=== PATIENT | male | born 1970 | race African-American/Black ===

== ENCOUNTER 2017-08-18 09:30 | Outpatient (RCR) | payer MEDICAID, SELFPAY ==
--- NOTE | 2017-07-07 11:56 | HP.PTEVAL_ITS ---
Patient's Visit Information JOSE M MCGEE Sr. is a 47 year old M referred to Physical Therapy by MIS [email or web address].NISA with a diagnosis of Right THR. Date of Evaluation: 07/07/17 Physical Therapist: Erin Chapin - Visit Plan Frequency: 2x /Week Duration: 6 Weeks Plan: Spoke to assist- pt is WBAT - Subjective Subjective: Right side TKR about a month ago. At the hospital for a few days then went home. Apartment- has to do steps (32)- when im up I stay up. Once he gets up there he is on one floor. Reports that he is on a walker and was told to up as least amount of weight as possible. Does have someone to do grocery shopping- has lots of help as needed. He is monkey crawling up the stairs. Does not have exercises to do at home. Does not drive- will bring van. Did therapy one time at [facility] but had a hard time getting there. Patient reports lots of pain in the right hip- mostly all the time. Worst: 8.5/ 10 Agg: movement, shifting weight, night time Best: 6/10 Eases: meds then goes to sleep. Describes pain as dull/achy and sharp/shooting. hurts a lot . Pain is located along the right outside of the hip and into the groin. Has an anterior incision. Sleep: disturbed. Has blood clots in the right leg- so he has to wear PEDRITO hose- not from this surgery. Has a filter. Is pretty much in the bed all the time. Sometimes has N/T in the toes. Goes back to see Jul 17-. PMHx/Meds: none since surgery - Objective Posture: FH, RS, increased kyphosis. Gait: antalgic- uses a platform walker- decreased stance on the right LE. SLS: unable but will WS. HR/TR: able. ROM: WFL with pain. Strength: ankle: 4/5, Knee: 4-/5, Hip: 3/5 throughout Core: poor. Palpation: tender along greater troch - Goals Goal 1:: Patient will be I with HEP and progression Goal Time Frame: 4-6 Weeks Goal 2:: Patient will demo normalized gait pattern >300 feet with LRD Goal Time Frame: 4-6 Weeks Goal 3:: Patient will asc/desc 8 stairs recip with 1 HR Goal Time Frame: 4-6 Weeks Goal 4:: Patient will demo 4+/5 strength in LE Goal Time Frame: 4-6 Weeks - Rehabilitation Potential Physical Therapy Diagnosis: Patient presents with hypomobility- he has decreased strength and muscular endurance leading to abnormal gait and decreased ability to perform ADL's. Rehabilitation Potential: Fair - Anticipated Interventions Patient/Client Instruction: Educate patient on: Benefits of Fitness Program For the Purpose of:: To improve ability to perform ADL's Therapeutic Exercise to Include: Strength training, Endurance training, Agility training, Body mechanics, Postural training, Flexibilty training, Gait and locomotor training, Passive ROM, Active ROM, Dynamic Lumbar Stabilization For the Purpose of:: To improve muscle performance and motor function TENS: Yes Cryotherapy (ice pack, ice massage): Yes Thermo therapy (hot pack): Yes Ultrasound (thermal/non thermal): No Thank you for the opportunity to evaluate your patient. For Medicare and Medicare HMO plans, please review the plan of care and approve it. It will need to be FAXED BACK to us at [phone] for Medicare purposes. Please let me know if there are questions or concerns regarding this plan of care. Physician Signature: Date:
--- NOTE | 2017-10-06 14:26 | HP.PTDCNRP_ITS ---
HP - Discharge Summary (1) - Patient Information JOSE M MCGEE was seen in my office for initial evaluation on 07/07/17. The following Plan of Care was established for this patient: Initial Frequency: 2x /Week Initial Duration: 6 Weeks - Anticipated Interventions Patient/Client Instruction: Educate patient on: Benefits of Fitness Program For the Purpose of:: To improve ability to perform ADL's Therapeutic Exercise to Include: Strength training, Endurance training, Agility training, Body mechanics, Postural training, Flexibilty training, Gait and locomotor training, Passive ROM, Active ROM, Dynamic Lumbar Stabilization For the Purpose of:: To improve muscle performance and motor function TENS: Yes Cryotherapy (ice pack, ice massage): Yes Thermo therapy (hot pack): Yes Ultrasound (thermal/non thermal): No This patient was last seen in our office . Pertinent comments regarding their Physical therapy will appear below: Patient has not attended physical therapy in over 4 weeks- appropriate to be d/ c at this time. At this point I will be discontinuing this patient from physical therapy. I would be happy to see this patient again in the future if found appropriate by the physician. Thank you! Erin Chapin
== END 2017-08-18 19:00 | disposition home or self-care (01) ==
LOC: PT 09:30
PROVIDERS: Visit Provider Physician Assistant Surgical
DX: M87.051 Idiopathic aseptic necrosis of right femur (principal)
CPT/HCPCS: 97110; 97161

== ENCOUNTER 2017-12-14 11:05 | Emergency (ER) | payer MEDICAID, SELFPAY ==
[2017-12-14 11:05] VITALS: BP 108/71; PULSE 82; RESP 20; TEMP 36.6; O2SAT 95; BMI 21.4
--- NOTE | 2017-12-14 11:14 | RAD_ITS ---
STUDY: X-RAY - PELVIS AND RIGHT HIP REASON FOR EXAM: Male, 47 years old. Right-sided hip pain after fall. TECHNIQUE: Radiological exam, hip, unilateral, with pelvis when performed; 2 or 3 views. COMPARISON: Radiographs of the pelvis dated June 04, 2017. FINDINGS: There is a non-specific bowel gas pattern. There are multiple calcified phleboliths. Sacrum and iliac wings are obscured by bowel gas and stool. Normal bilateral superior and inferior pubic rami. There are degenerative changes of the pubic symphysis with articular narrowing and sclerosis. Normal bilateral ischial tuberosities. Patient has had a total right hip arthroplasty. There is a bony fragment near the greater trochanter that may be the result of previous surgery and/or trauma. This is not visible on the previous radiograph. There are degenerative changes of the left hip. There is abnormal heterogeneous attenuation of the left femoral head that suggest sequela of avascular necrosis. There is a small left acetabular spur. RAD/Hip 2-3 Views with Pelvis IMPRESSION: 1. New corticated bone fragment near the right greater trochanter possibly related to fracture of uncertain acuity. 2. Total right hip arthroplasty. 3. 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 Electronically Signed: Radha Bah MD at 11:57 EDT , Service support ,
--- NOTE | 2017-12-14 11:14 | RAD_ITS ---
STUDY: X-RAY - RIGHT KNEE REASON FOR EXAM: Male, 47 years old. Right-sided knee pain after fall. TECHNIQUE: 3 view(s) of the knee. COMPARISON: Radiographs of the right knee dated July 29, 2015. FINDINGS: Normal visualized distal femur. Normal visualized proximal tibia and fibula. There is a well-corticated bony fragment anterior to the proximal tibia, unchanged since the previous study. Normal proximal tibiofibular articulation. There is no demonstrated fracture. Normal medial femorotibial compartment. Normal lateral femorotibial compartment. There is mild degenerative arthrosis of the patellofemoral articulation. There is no demonstrated joint effusion. The soft tissue structures are unremarkable. RAD/Knee 3 Views IMPRESSION: 1. Mild degenerative arthropathy similar to previous radiograph. 2. No radiographic evidence for acute fracture. If there is still clinical concern for acute fracture, follow-up radiographs in 7-10 days maybe helpful in evaluating a healing radiographically occult fracture. Electronically Signed: Radha Bah MD at 12:02 EDT , Service support ,
--- NOTE | 2017-12-14 11:17 | ED.DCSUM_ITS ---
- ER Visit Summary Date of Service: 12/14/17 Chief Complaint: Right hip and leg pain History of Present Illness: The patient is a 47 M who presents after a fall. He fell down 6 steps today. It was a mechanical fall. He has pain in the right hip that radiates down to the right lower leg. It is worse when he ambulates. He does have a history of DVT. He is on Pradaxa. Denies hitting her head. No LOC. He also has an IVC filter. He took Tylenol home without any relief Physical Examination: Vital signs reviewed. Right leg exam reveals tenderness diffusely over the right hip near the greater trochanter. He also has diffuse right knee pain. He has painful range of motion in any direction. He has 2+ distal pulses. His right leg is warm. It is slightly swollen compared to the left. His compartments are soft. Test Results: X-ray of the right hip reveals her right hip it has been replaced. There is a fracture fragment at the greater trochanter. The acuity of this is unknown. X-rays of the knee reveal arthritic changes Emergency Department Course and Treatment: Patient was given naproxen here. He did not tell me that he had his hip replaced about 3-[address] Wang. There is a fracture fragment but it does not look acute. His knee x- ray reveals arthritic changes only. Patient will continue his home medications and will use ice on all of these areas. He will continue his medications at home for DVT. I do not feel that this is an acute DVT. He is already on Pradaxa and has an IVC filter. He will follow-up with his primary care physician Treatment Plan: [] Disposition: Discharge Impression: Hip and knee pain This note was generated with [employer] dictation software. It may contain incorrect words, spelling, and punctuation that were not noted in review of the chart prior to signing ED Disposition - Plan for ED Patient: Chief Complaint: Fall Referrals: Care Physician,No Primary [Primary Care Provider] -
[2017-12-14] MEDS: Naproxen 500 MG Tablet PO (12:00)
--- NOTE | 2017-12-14 12:20 | ED.DEP ---
ED Disposition - Plan for ED Patient: Disposition: Home or Assisted Living Chief Complaint: Fall Instructions: ED Mechanical Fall Referrals: Care Physician,No Primary [Primary Care Provider] -
[2017-12-14 12:27] VITALS: BP 135/72; PULSE 94; RESP 22; O2SAT 98
--- NOTE | 2017-12-14 12:28 | ED.RN ---
THIS NURSE REVIEWED D/C INSTRUCTIONS WITH PT. PT VERBALIZED UNDERSTANDING OF INSTRUCTIONS. PT DENIES FURTHER NEEDS OR QUESTIONS AT THIS TIME. PT AMBULATES FROM ROOM ON OWN WITHOUT ASSISTANCE FROM STAFF
== END 2017-12-14 12:29 | disposition home or self-care (01) ==
PROVIDERS: Emergency Provider Emergency Medicine
DX: M25.551 Pain in right hip (principal); M25.561 Pain in right knee; W10.9XXA Fall (on) (from) unspecified stairs and steps, initial encounter; Y93.9 Activity, unspecified; Y92.9 Unspecified place or not applicable; Y99.9 Unspecified external cause status; Z79.02 Long term (current) use of antithrombotics/antiplatelets; Z86.718 Personal history of other venous thrombosis and embolism; Z96.641 Presence of right artificial hip joint
CPT/HCPCS: 73502; 73562; 99283

== ENCOUNTER → 2017-12-23 12:53 | Outpatient (CLI) | payer MEDICAID, SELFPAY ==
[2017-12-23 14:19] LABS: Amphetamine Urine VISTA NEGATIVE (<1000 ng/mL); Barbiturate Urine VISTA NEGATIVE (< 200 ng/mL); Benzodiazepine Urine VISTA NEGATIVE (< 200 ng/mL); Cocaine Urine VISTA NEGATIVE (< 300 ng/mL); Ecstacy Urine VISTA NEGATIVE (< 500 ng/mL); Methadone Urine VISTA NEGATIVE (< 300 ng/mL); PCP Urine VISTA NEGATIVE (< 25 ng/mL); THC Urine VISTA NEGATIVE (< 50 ng/mL); Vista UDS pH Range 6
== END ==
PROVIDERS: Visit Provider Nurse Practitioner Family
DX: G89.29 Other chronic pain (principal); Z79.899 Other long term (current) drug therapy
CPT/HCPCS: 80307

== ENCOUNTER 2018-01-13 09:25 | Emergency (ER) | payer MEDICAID, SELFPAY ==
[2018-01-13 09:26] VITALS: BP 112/87; PULSE 109; RESP 18; TEMP 37.1; O2SAT 98; BMI 22.1
[2018-01-13 10:22] LABS: Bacteria 0 SEEN /hpf (None Seen); Mucous, Urine 0 SEEN /hpf (<or=2+)
[2018-01-13 10:24] LABS: Color, Urine Yellow (Yellow); Glucose, Dipstick Normal (Normal); Ketone-Dipstick Negative (Negative); Leukocyte Esterase-Dipstick 500 /ul (Negative); Nitrite-Dipstick Negative (Negative); Occult Blood-Urine 10 /ul (Negative); Protein-Dipstick 15 mg/dl (Negative); Specific Gravity, Urine 1.015 (1.002-1.030); Urine Bilirubin Dipstick Negative (Negative); Urine Clarity Sl. Cloudy (Clear); Urine Urobilinogen Normal (Normal)
[2018-01-13 10:32] LABS: Red Blood Cells-Urine 0-5 SEEN /hpf (0-5); Squamous Epithelial Cells - UA 0-5 SEEN /hpf (0-5); White Blood Cells 25-50 SEEN /hpf (0-5)
--- NOTE | 2018-01-13 11:25 | ED.DCSUM_ITS ---
- ER Visit Summary Date of Service: 01/13/18 Chief Complaint: Hematuria History of Present Illness: The patient is a 47 M who presents with painless hematuria that started this morning. He is on Eliquis, however he has been on blood thinners for quite some time although he got switched to Eliquis a few weeks ago. He has no abdominal pain. No flank pain. No testicular pain. No pain with bowel movement. No fever or chills. Physical Examination: Otherwise unremarkable examination, soft abdomen nontender, no CVA tenderness normal external genitalia. Emergency Department Course and Treatment: Patient presents with painless hematuria, his urinalysis does show blood, his urine is slightly cloudy but I do not see any gross blood there for I am not worried about obstruction. He has been on blood thinners for quite some time and has not had this problem thus he needs to follow-up with urology for cystoscopy. Because of PEs he is told to continue his Eliquis , if he gets gross hematuria he needs to return. Disposition: Discharged in stable condition Impression: Painless hematuria This note was generated with [employer] dictation software. It may contain incorrect words, spelling, and punctuation that were not noted in review of the chart prior to signing ED Disposition - Plan for ED Patient: Disposition: Home or Assisted Living Chief Complaint: Complaint Instructions: ED Hematuria Referrals: Emory Mccauley MD [STAFF PHYSICIAN] - 3-5 Days
[2018-01-13 11:39] VITALS: BP 124/77; PULSE 83; RESP 16; O2SAT 100
== END 2018-01-13 11:39 | disposition home or self-care (01) ==
PROVIDERS: Emergency Provider Emergency Medicine
DX: R31.9 Hematuria, unspecified (principal); Z79.01 Long term (current) use of anticoagulants; Z79.899 Other long term (current) drug therapy; Z86.711 Personal history of pulmonary embolism; Z86.718 Personal history of other venous thrombosis and embolism
CPT/HCPCS: 81001; 99282

== ENCOUNTER 2019-02-24 18:47 | Emergency (ER) | payer MEDICAID, SELFPAY ==
[2019-02-24 18:48] VITALS: BP 113/84; PULSE 78; RESP 16; TEMP 36.6; O2SAT 96; BMI 23.0
[2019-02-24] MEDS: Morphine 4 MG/ML Syringe SC (19:16)
--- NOTE | 2019-02-24 19:30 | RAD_ITS ---
STUDY: X-RAY - PELVIS AND RIGHT HIP REASON FOR EXAM: Male, 48 years old. Posttraumatic pain TECHNIQUE: 4 views of the pelvis and hip. COMPARISON: January 13, 2018 FINDINGS: There is a non-specific bowel gas pattern. Normal visualized soft tissue structures. Normal bilateral iliac wings, sacroiliac joints and visualized sacrum. Normal bilateral superior and inferior pubic rami. Normal pubic symphysis. Normal bilateral ischial tuberosities. There are degenerative changes of left hip Right hip prosthesis is noted in anatomic alignment and position. No change since prior exam RAD/HIP, UNI W/ Pelvis 2-3 Views IMPRESSION: Stable appearance to right hip prosthesis. No evidence for acute fracture of the right hip or pelvis. Electronically Signed: De Segura MD at 19:44 EDT , Service support ,
[2019-02-24 19:39] LABS: International Normalized Ratio 0.8; Prothrombin Time (Protime)PT. 11.3 SECONDS (11.7-14.9)
[2019-02-24 19:48] LABS: CPK Total, Creatine Kinase 103 U/L (39-308)
--- NOTE | 2019-02-24 20:19 | ED.DCSUM_ITS ---
History of Present Illness Chief Complaint: Lower Extremity Injury Narrative: Patient presenting secondary to a fall with leg pain. Patient reports that he suffered a mechanical fall down a couple of stairs just prior to arrival. Patient states that he had a right hip replacement performed somewhat recently. Patient states that after the fall he has a hematoma of his medial thigh. He is concerned because he is on anticoagulation secondary to a DVT in that right leg. He denies any numbness or weakness associated with this. Pain is moderate worse with any sort of movement or palpation. Patient denies that he had any sort of head injury in this fall. Denies any numbness or weakness or visual changes. Past Medical History - Allergies and Home Meds Allergies/Adverse Reactions: Allergies Penicillins Allergy (Verified 02/24/19 19:08) Swelling venom-honey bee [bee venom (honey bee)] Allergy (Verified 02/24/19 19:08) Anaphylaxis Past Medical History: - - DVT Surgical History: total hip arthroplasty, tonsillectomy, - - left wrist surgery, right IVC filter Smoking Status: Current every day smoker Review of Systems All systems negative except as indicated General: Denies: Fever Cardiovascular: Denies: Chest pain Respiratory: Denies: Dyspnea Musculoskeletal: Reports: - - Right leg pain with hematoma Physical Exam Vital Signs/Narrative: Vital Signs Temp Pulse Resp BP Pulse Ox 02/24/19 18:48 97.8 F 78 16 113/84 H 96 - Extremity Exam Right Femur: - - Examination of the patient's right lower extremity shows venous stasis changes of the entirety of the right leg which the patient states are unchanged. Patient has a hematoma over the proximal medial thigh which is tender to palpation. Patient's compartments of the thigh and calf are tender, but are soft throughout. Patient has decreased pulses DP and PT pulses in the right leg when compared to the left leg, but these are easily dopplerable, and there is no evidence of coolness of the skin when compared to the contralateral leg. General: Well nourished, Well developed Head: Normocephalic, Atraumatic Eyes: Perrl, EOMI ENT: No Trauma, Moist Mucous Membranes Neck: Nontender, Full ROM Cardiovascular: Regular rate, Regular rhythm, No murmurs Respiratory: No distress, CTA bilaterally, Chest nontender Abdomen: Soft, Nontender, Nondistended, Normal bowel sounds Neurological: Alert, Oriented x3, Cranial nerves II-XII grossly intact, Normal Strength, Normal Sensation Psychological: Normal affect Diagnostic/Tx/Re-eval - Medical Decision Making Patient presented secondary to leg pain. Patient initially told me he was on Coumadin, but then it became apparent that he is on Eliquis. An INR was found to be normal not surprisingly. Patient CK was not found to be elevated. He was treated in the emergency department with analgesics and elevation. A x-ray was obtained which was negative by my personal review as well as radiology and a 3 view hip and pelvis. Patient has a localized hematoma over his medial thigh no evidence of other traumatic injuries. He has no signs or symptoms of persistent compartment bleeding or compartment syndrome. At this point I do not believe that the patient requires admission. I did give him strict return instructions which she voiced understanding and his own words. Patient was discharged with a short course of [place] for pain control. ED Disposition - Plan for ED Patient: Disposition: Home or Assisted Living Diagnosis: Hematoma of right thigh Instructions: Hematoma Prescriptions: Hydrocodone Bitart/Apap 5-325 [[place] 5MG-325MG] 1 tab PO Q8H PRN PRN 3 Days #9 tab PRN Reason: Pain Prescription Printed Additional Instructions: Your PCP as needed
[2019-02-24 20:28] VITALS: BP 116/75; PULSE 63; RESP 17; O2SAT 100
== END 2019-02-24 20:30 | disposition home or self-care (01) ==
PROVIDERS: Emergency Provider Emergency Medicine
DX: S70.11XA Contusion of right thigh, initial encounter (principal); W10.9XXA Fall (on) (from) unspecified stairs and steps, initial encounter; Y93.9 Activity, unspecified; Y92.9 Unspecified place or not applicable; Y99.9 Unspecified external cause status; F17.200 Nicotine dependence, unspecified, uncomplicated; Z79.01 Long term (current) use of anticoagulants; Z79.899 Other long term (current) drug therapy; Z88.0 Allergy status to penicillin; Z86.718 Personal history of other venous thrombosis and embolism; Z96.641 Presence of right artificial hip joint
CPT/HCPCS: 36415; 73502; 82550; 85610; 96372; 99282

== ENCOUNTER 2019-04-09 08:53 | Emergency (ER) | payer MEDICAID, SELFPAY ==
[2019-04-09 08:54] VITALS: BP 119/66; PULSE 79; RESP 18; TEMP 36.6; O2SAT 99; BMI 23.0
--- NOTE | 2019-04-09 09:07 | CT_ITS ---
STUDY: CT BRAIN WITHOUT CONTRAST REASON FOR EXAM: Male, 48 years old. Fall, hit head, headache RADIATION DOSAGE (If Supplied By Facility): CTDIvol = ( 44.99 ) mGy, DLP = ( 748.30 ) mGycm TECHNIQUE: Transaxial CT imaging of the brain was performed without administration of intravenous contrast material. Individualized dose optimization techniques were used for this CT. COMPARISON: 06/27/2014 FINDINGS: Normal soft tissue structures. Normal calvarium. Normal size ventricles and extra-axial spaces for the patient's age. Normal white matter tracts of the cerebral hemispheres. Normal basal ganglia and thalami. Normal brainstem. Normal cerebellum. There is no intracranial hemorrhage. There are no findings of an acute ischemic infarction. Normal visualized paranasal sinuses. CT/Brain/Head without Contrast IMPRESSION: Normal unenhanced CT scan of the brain. Electronically Signed: Miller Shaw MD at 10:11 EDT Tel , Service support ,
--- NOTE | 2019-04-09 09:09 | ED.DCSUM_ITS ---
- ER Visit Summary Date of Service: 04/09/19 Chief Complaint: Fall History of Present Illness: The patient is a [address] Fish. He reports approximately 1 hour ago he fell down 12 steps after losing his balance. He did have a blow to the head. No loss of consciousness. However, he is on Coumadin for DVT. He reports his last INR was 2 days ago and it was low. Patient reports his low back pain is 6 out of 10 severity. Left wrist pain is 7 out of 10 severity. And right ankle and foot pain that is 8 out of 10 in severity. He denies any shortness of breath. However, he does report that he has left-sided chest pain following the fall as well. He Physical Examination: Vitals: Stable. Afebrile. Neck: No vertebral tenderness. Full ROM without difficulty. Cleared by NEXUS criteria. Back: Moderate diffuse tender to palpation over the LS spine. No point tend erness. General: A&O x 3. NAD. Cardiovascular exam: Regular rate and rhythm, no murmur, rub or gallop. Respiratory exam: Mild tenderness palpation over the left side of his chest. No crepitus. Clear to auscultation bilaterally. No wheezes or stridor. Abdominal exam: Soft, nontender, nondistended, normal bowel sounds. No pain in RUQ or LUQ specifically. No peritoneal signs. Extremity: Moderate tenderness palpation that is diffuse over the distal third of the left forearm. 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 Mild tenderness palpation that stiff over the distal tibia on the right. Moderate tenderness palpation over the dorsum of his foot and great toe.. Test Results: INR is 1.0 Clinical Impression(s) from Imaging Studies Brain CT 04/09/19 09:07 IMPRESSION: Normal unenhanced CT scan of the brain. Electronically Signed: Miller Shaw MD at 10:11 EDT Tel , Service support , Ankle X-Ray 04/09/19 09:45 IMPRESSION: Normal x-ray examination of the ankle. Electronically Signed: Miller Shaw MD at 10:16 EDT Tel , Service support , Chest X-Ray 04/09/19 09:51 IMPRESSION: Normal x-ray examination of the chest. Electronically Signed: Miller Shaw MD at 10:32 EDT Tel , Service support , Foot X-Ray 04/09/19 09:57 IMPRESSION: 1. No acute fracture or dislocation. 2. Mild hallux valgus deformity. Electronically Signed: Miller Shaw MD at 10:17 EDT Tel , Service support , Forearm X-Ray 04/09/19 10:03 IMPRESSION: Normal x-ray examination of the radius and ulna. Electronically Signed: Miller Shaw MD at 10:31 EDT Tel , Service support , Lumbar Spine X-Ray 04/09/19 10:09 IMPRESSION: Normal x-ray examination of the lumbar spine. No acute fracture or subluxation. Electronically Signed: Miller Shaw MD at 10:32 EDT Tel , Service support , Emergency Department Course and Treatment: Patient had a dose of [place] and Zofran p.o. He is resting more comfortably. Treatment Plan: Patient will be discharged with prescription for 10 [place]. Instructed to follow-up with his primary care physician 1 week if not improving. Disposition: To home in improved and stable condition. Impression: 1. Fall. 2. Right foot sprain. 3. Left forearm contusion. This note was generated with [employer] software. It may contain incorrect words, spelling, and punctuation that were not noted in review of the chart prior to signing ED Disposition - Plan for ED Patient: Disposition: Home or Assisted Living Instructions: FALL, Mechanical Prescriptions: Hydrocodone Bitart/Apap 5-325 [[place] 5MG-325MG] 1 tab PO Q4H PRN PRN 2 Days #10 tab PRN Reason: Pain Prescription Printed Referrals: Hubert Fish DO [STAFF PHYSICIAN] - 1 Week if not improving
[2019-04-09 09:42] LABS: Prothrombin Time (Protime)PT. 12.7 SECONDS (11.7-14.9)
--- NOTE | 2019-04-09 09:45 | RAD_ITS ---
STUDY: X-RAY - RIGHT ANKLE REASON FOR EXAM: Male, 48 years old. Fall, ankle pain TECHNIQUE: 3 view(s) of the ankle. COMPARISON: None. FINDINGS: Normal visualized distal tibia and fibula. Normal medial and lateral malleoli. Normal tibiotalar articulation and ankle mortise. Normal visualized talus and calcaneus. The visualized subtalar, talonavicular, calcaneocuboid and tarsal articulations are normal. The soft tissue structures are unremarkable. RAD/Ankle min 3 Views IMPRESSION: Normal x-ray examination of the ankle. Electronically Signed: Miller Shaw MD at 10:16 EDT Tel , Service support ,
--- NOTE | 2019-04-09 09:51 | RAD_ITS ---
STUDY: X-RAY CHEST REASON FOR EXAM: Male, 48 years old. Trauma, chest pain TECHNIQUE: Single AP portable view of the chest. COMPARISON: None. FINDINGS: The lungs are clear and expanded. There is no demonstrated pleural abnormality. Normal size heart. Normal mediastinum and wade. Normal visualized pulmonary arteries. Normal visualized aortic arch and descending thoracic aorta. Normal visualized thoracic spine. Normal visualized ribs, clavicles, and shoulders. There is no demonstrated abnormality of the visualized soft tissue structures of the upper abdomen. RAD/Chest 1 View (Portable) IMPRESSION: Normal x-ray examination of the chest. Electronically Signed: Miller Shaw MD at 10:32 EDT Tel , Service support ,
--- NOTE | 2019-04-09 09:57 | RAD_ITS ---
STUDY: X-RAY - RIGHT FOOT CLINICAL: Male, 48 years old. Fall, foot pain TECHNIQUE: 3 view(s) of the foot. COMPARISON: None. FINDINGS: Normal talus, calcaneus, and tarsal bones. Normal visualized subtalar, talonavicular, calcaneocuboid, tarsal and tarsometatarsal articulations. Normal metatarsi. There is degenerative arthrosis of the metatarsophalangeal joint of the hallux with a hallux valgus deformity. Normal tibial and fibular sesamoid bones. Normal interphalangeal joint of the great toe. Normal phalanges of the great toe. Normal second through fifth metatarsophalangeal joints. Normal interphalangeal joints and phalanges of the lesser toes. The soft tissue structures are unremarkable. RAD/Foot min 3 Views IMPRESSION: 1. No acute fracture or dislocation. 2. Mild hallux valgus deformity. Electronically Signed: Miller Shaw MD at 10:17 EDT Tel , Service support ,
--- NOTE | 2019-04-09 10:03 | RAD_ITS ---
STUDY: X-RAY - LEFT RADIUS AND ULNA REASON FOR EXAM: Male, 48 years old. Fall, pain TECHNIQUE: 2 view(s) of the forearm. COMPARISON: None. FINDINGS: There is no demonstrated soft tissue swelling. Normal visualized radius. Normal visualized ulna. RAD/Forearm 2 Views IMPRESSION: Normal x-ray examination of the radius and ulna. Electronically Signed: Miller Shaw MD at 10:31 EDT Tel , Service support ,
--- NOTE | 2019-04-09 10:09 | RAD_ITS ---
STUDY: X-RAY - LUMBAR SPINE REASON FOR EXAM: Male, 48 years old. Fall, back pain TECHNIQUE: 3 view(s) of the lumbar spine were obtained. COMPARISON: None FINDINGS: Normal lumbar lordosis. There is no substantial scoliosis. There is a normal alignment of the vertebrae. Normal vertebral bodies and endplates. Normal disc space heights. The soft tissue structures are unremarkable. RAD/Lumbar Spine 2 or 3 Views IMPRESSION: Normal x-ray examination of the lumbar spine. No acute fracture or subluxation. Electronically Signed: Miller Shaw MD at 10:32 EDT Tel , Service support ,
[2019-04-09] MEDS: Ondansetron ODT 4 MG Tablet PO (10:11)
[2019-04-09] MEDS: HYDROcodone Bitartrate/Apap 5/325 Tablet PO (11:03)
== END 2019-04-09 11:06 | disposition home or self-care (01) ==
LOC: ED 09:20
PROVIDERS: Emergency Provider Emergency Medicine
DX: S93.601A Unspecified sprain of right foot, initial encounter (principal); S50.12XA Contusion of left forearm, initial encounter; M25.532 Pain in left wrist; M54.5 Low back pain; W10.9XXA Fall (on) (from) unspecified stairs and steps, initial encounter; Y93.9 Activity, unspecified; Y92.9 Unspecified place or not applicable; Y99.9 Unspecified external cause status; Z72.0 Tobacco use; Z79.01 Long term (current) use of anticoagulants
CPT/HCPCS: 70450; 71045; 72100; 73090; 73610; 73630; 85610; 99283; A4216

== ENCOUNTER 2019-08-23 08:46 | Emergency (ER) | payer MEDICAID, SELFPAY ==
[2019-08-23 08:46] VITALS: BP 113/48; PULSE 73; RESP 18; TEMP 36.6; O2SAT 100; BMI 21.6
--- NOTE | 2019-08-23 09:08 | RAD_ITS ---
EXAM DESCRIPTION: Left hand CLINICAL HISTORY: 49 years Male, left hand pain s/p fall down stairs today COMPARISON: Previous examinations obtained on 05/21/2016 FINDINGS: Studies of the left hand in 3 projections shows no evidence of fracture, dislocation, or bony destruction. There appear to be some flexion crack contracture deformities involving the second through fifth fingers as the technologist could not straighten his fingers. There is mild degenerative arthritis involving the first metacarpocarpal articulation. 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 Electronically Signed: Bashir Rojas, at 10:40 EST Tel , Service support ,
--- NOTE | 2019-08-23 09:08 | CT_ITS ---
EXAM DESCRIPTION: CT scan of the cervical spine CLINICAL HISTORY: 49 years Male, FELL DOWN STAIRS COMPARISON: Previous CT scan cervical spine obtained 06/27/2014. TECHNIQUE: A CT scan of cervical spine was performed in the axial plane, with coronal and sagittal reconstruction imaging. This exam was performed according to our departmental dose-optimization program, which includes automated exposure control, adjustment of the mA and/or kV according to patient size and/or use of iterative reconstruction technique. FINDINGS: The base of the skull and C1 and C2 and C3 and C4 and C5 and C6 and C7 and T1 are well-visualized and appear to be normal. The lung apices appear to be normal. The cervical soft tissues appear to be normal. The cervical vertebra are in good position and alignment. CT/Spine Cervical without Contras IMPRESSION: Normal CT scan of the cervical spine. Electronically Signed: Bashir Rojas, at 10:33 EST Tel , Service support ,
--- NOTE | 2019-08-23 09:08 | RAD_ITS ---
EXAM DESCRIPTION: Left wrist CLINICAL HISTORY: 49 years Male, left wrist s/p fall down stairs today COMPARISON: Previous left wrist x-rays obtained on 06/04/2016 FINDINGS: Studies of the left wrist in [4] projections shows no evidence of fracture, dislocation or bony destruction. RAD/Wrist min 3 Views IMPRESSION: Normal Left Wrist. Electronically Signed: Bashir Crystal, at 10:34 EST Tel , Service support ,
--- NOTE | 2019-08-23 09:08 | CT_ITS ---
EXAM DESCRIPTION: Unenhanced CT scan of the head CLINICAL HISTORY: 49 years Male, FELL DOWN STAIRS TODAY COMPARISON: Previous CT scan obtained on 04/09/2019 TECHNIQUE: A CT scan of the head was performed without IV contrast in the axial plane. Coronal and sagittal reconstruction images were also obtained. This exam was performed according to our departmental dose-optimization program, which includes automated exposure control, adjustment of the mA and/or kV according to patient size and/or use of iterative reconstruction technique. FINDINGS: The sean, medulla, and cerebellum appear to be normal. The ventricles and sulci are normal in size and shape. The basal ganglia appear to be normal. The inner and outer tables of the skull are intact. The frontal, ethmoid, maxillary, and sphenoid sinuses are normal. The mastoid air cells are normal. CT/Brain/Head without Contrast IMPRESSION: Normal CT scan of the head. . Electronically Signed: Bashir Rojas, at 10:02 EST Tel , Service support ,
--- NOTE | 2019-08-23 09:08 | RAD_ITS ---
EXAM DESCRIPTION: Right ankle CLINICAL HISTORY: 49 years Male, right ankle pain s/p fall COMPARISON: Previous right ankle x-rays obtained on 06/27/2014 FINDINGS: Studies of the right ankle in three projections shows no evidence of fracture, dislocation, or bony destruction. RAD/Ankle min 3 Views IMPRESSION: Normal right ankle. Electronically Signed: Bashir Rojas, at 10:35 EST Tel , Service support ,
--- NOTE | 2019-08-23 09:09 | RAD_ITS ---
STUDY: X-RAY - LUMBAR SPINE REASON FOR EXAM: Male, 49 years old. LBP s/p fall down stairs today -- bilateral leg pain TECHNIQUE: 3 view(s) of the lumbar spine were obtained. COMPARISON: 04/09/2019 FINDINGS: Normal lumbar lordosis. There is no substantial scoliosis. There is a normal alignment of the vertebrae. There is multilevel endplate spondylosis of the lumbar vertebrae. Normal disc space heights. Inferior vena cava filter. RAD/Lumbar Spine 2 or 3 Views IMPRESSION: 1. No acute fracture or subluxation. 2. Mild diffuse degenerative disc disease. 3. Inferior vena cava filter. Electronically Signed: Miller Shaw MD at 11:36 EST Tel , Service support ,
--- NOTE | 2019-08-23 09:09 | RAD_ITS ---
STUDY: X-RAY CHEST REASON FOR EXAM: Male, 49 years old. cough and congestion -- fell down stairs this morning TECHNIQUE: Single AP portable view of the chest. COMPARISON: 04/09/2019 FINDINGS: The lungs are clear and expanded. There is no demonstrated pleural abnormality. Normal size heart. Normal mediastinum and wade. Normal visualized pulmonary arteries. Normal visualized aortic arch and descending thoracic aorta. Normal visualized thoracic spine. Normal visualized ribs, clavicles, and shoulders. There is no demonstrated abnormality of the visualized soft tissue structures of the upper abdomen. RAD/Chest 1 View IMPRESSION: Normal x-ray examination of the chest. Electronically Signed: Miller Shaw MD at 11:36 EST Tel , Service support ,
--- NOTE | 2019-08-23 09:12 | ED.VISSUMM ---
- ER Visit Summary Date of Service: 08/23/19 Chief Complaint: Fall History of Present Illness: The patient is a 49 M presenting after fall. Patient states he tripped and fell down approximately one flight of steps today. He does not believe he hit his head although he is not sure. He did not lose consciousness. He is on Coumadin for history of DVT/PE. He complains of low back pain, right ankle pain, left wrist pain. He also complains of cough and congestion which has been ongoing for the past 2 days. He has had subjective fever. Denies other complaints. Physical Examination: Vitals are stable. Patient is afebrile. Alert no acute distress. HEENT exam is unremarkable. Neck is nontender Lungs are clear and equal bilaterally. Heart is regular rate and rhythm. Abdomen is soft nontender nondistended. No guarding or rebound Back: Bilateral paraspinal lumbar muscle tenderness, no midline tenderness. Extremities right ankle diffuse tenderness with active full range of motion. Left wrist and hand mild diffuse tenderness. Skin is warm and dry. No focal neurologic deficit. Remainder of exam is unremarkable. Emergency Department Course and Treatment: INR is 1.0. On further review patient now states he is on Eliquis and not Coumadin. Xrays show normal right ankle. Right hand and wrist xrays show mild degenerative arthritis of the first metacarpal carpal articulation with some soft tissue flexion contractures of the second through fifth fingers, Normal Left Wrist. Normal CT scan of the head. Normal CT scan of the cervical spine. Lumbar spine xray shows no acute fracture or subluxation. Normal x-ray examination of the chest. On reevaluation, patient is resting comfortably. He is given a prescription for Flexeril. He is given a prescription for Tessalon Perles for his cough. Advised to follow-up with his primary care physician. Advised return to ED for worsening complaints. Disposition: Discharge home Impression: Status post mechanical fall, multiple contusions, bronchitis This note was generated with [employer] dictation software. It may contain incorrect words, spelling, and punctuation that were not noted in review of the chart prior to signing ED Disposition - Plan for ED Patient: Instructions: BRONCHITIS, No Antibiotic (Adult), FALL, Mechanical Prescriptions: cycloBENZAPRine HCl [Flexeril] 10 mg PO TID PRN #20 tab PRN Reason: Muscle Spasm Prescription Printed Benzonatate [Tessalon Perle] 200 mg PO TID PRN PRN #20 cap PRN Reason: Cough Prescription Printed Referrals: Care Physician,No Primary [Primary Care Provider] -
[2019-08-23 09:16] VITALS: BP 104/63; PULSE 67; RESP 99
[2019-08-23 09:21] VITALS: O2SAT 99
[2019-08-23 09:50] LABS: Prothrombin Time (Protime)PT. 13.2 SECONDS (11.7-14.9)
[2019-08-23 11:10] VITALS: BP 110/54; PULSE 87; RESP 16; O2SAT 99
--- NOTE | 2019-08-23 11:44 | ED.DEP ---
ED Disposition - Plan for ED Patient: Instructions: FALL, Mechanical, BRONCHITIS, No Antibiotic (Adult) Prescriptions: cycloBENZAPRine HCl [Flexeril] 10 mg PO TID PRN #20 tablet PRN Reason: Muscle Spasm Benzonatate [Tessalon Perle] 200 mg PO TID PRN PRN #20 capsule PRN Reason: Cough Referrals: Care Physician,No Primary [Primary Care Provider] -
== END 2019-08-23 12:06 | disposition home or self-care (01) ==
PROVIDERS: Emergency Provider Emergency Medicine
DX: T14.8XXA Other injury of unspecified body region, initial encounter (principal); W10.9XXA Fall (on) (from) unspecified stairs and steps, initial encounter; Y93.9 Activity, unspecified; Y92.9 Unspecified place or not applicable; J40 Bronchitis, not specified as acute or chronic; Z72.0 Tobacco use; Z79.01 Long term (current) use of anticoagulants; Z86.718 Personal history of other venous thrombosis and embolism; Z86.711 Personal history of pulmonary embolism; Z86.73 Personal history of transient ischemic attack (TIA), and cerebral infarction without residual deficits
CPT/HCPCS: 70450; 71045; 72100; 72125; 73110; 73130; 73610; 85610; 99283

== ENCOUNTER 2020-03-28 09:21 | Emergency (ER) | payer MEDICAID, SELFPAY ==
[2020-03-28 09:22] VITALS: BP 126/73; PULSE 76; RESP 15; TEMP 36.1; O2SAT 100; BMI 23.3
--- NOTE | 2020-03-28 09:48 | RAD_ITS ---
STUDY: X-RAY - PELVIS AND LEFT HIP REASON FOR EXAM: Male, 49 years old. FALL DOWN SOME STAIRS, LEFT HIP AND LOWER BACK PAIN TECHNIQUE: 3 views of the pelvis and hip. COMPARISON: None. FINDINGS: There is a non-specific bowel gas pattern. There are multiple calcified phleboliths. Normal bilateral iliac wings, sacroiliac joints and visualized sacrum. Normal bilateral superior and inferior pubic rami. Normal pubic symphysis. Normal bilateral ischial tuberosities. Normal visualized femoral head. There is osteoarthritic spur formation of the acetabular rim. There is moderate articular joint space narrowing of the hip. The patient is status post right total hip replacement. RAD/HIP, UNI W/ Pelvis 2-3 Views IMPRESSION: Degenerative changes of the left hip joint. The patient is status post right total hip replacement. Electronically Signed: Porfirio Landry, at 10:59 EDT , Service support ,
--- NOTE | 2020-03-28 09:48 | RAD_ITS ---
STUDY: X-RAY - LUMBAR SPINE REASON FOR EXAM: Male, 49 years old. FALL DOWN SOME STAIRS, LEFT HIP AND LOWER BACK PAIN TECHNIQUE: 3 view(s) of the lumbar spine were obtained. COMPARISON: Comparison is made with prior study dated 08/23/2019. FINDINGS: Normal lumbar lordosis. There is no substantial scoliosis. There is a normal alignment of the vertebrae. Mild spondylosis at the L3-L4 and L4-L5 levels. Normal disc space heights. A filter is seen within the inferior vena cava. RAD/Lumbar Spine 2 or 3 Views IMPRESSION: Degenerative changes of the spine, as detailed above. Inferior vena cava filter. Electronically Signed: Porfirio Landry, at 10:58 EDT , Service support ,
--- NOTE | 2020-03-28 09:48 | CT_ITS ---
STUDY: CT CERVICAL SPINE WITHOUT CONTRAST REASON FOR EXAM: Male, 49 years old. S/P FALL ON STAIRS. LEFT HIP PAIN. HX-CVA, DVT''S, HAS AMOS FILTER RADIATION DOSAGE (If Supplied By Facility): CTDIvol = ( 23.27 ) mGy, DLP = ( 588.58 ) mGycm TECHNIQUE: High resolution transaxial imaging was performed without contrast material. Sagittal and coronal images were reconstructed. Individualized dose optimization techniques were used for this CT. COMPARISON: Comparison is made with prior study dated 08/23/2019. FINDINGS: Normal craniovertebral junction. Normal anterior atlantoaxial articulation. Normal odontoid process. There is straightening of the normal cervical lordosis. Normal vertebral bodies and posterior osseous elements. C2-3: Normal endplates. Normal disc height and morphology. Normal central canal and intervertebral neuroforamina. C3-4: Normal endplates. Normal disc height and morphology. Normal central canal and intervertebral neuroforamina. C4-5: Mild to moderate degree of disc space narrowing with spondylosis. No significant stenosis seen. C5-6: Moderate degree of disc space narrowing. Spondylosis. Minimal narrowing of the intervertebral foramen bilaterally. C6-7: Moderate degree of disc space narrowing with spondylosis. C7-T1: Normal endplates. Normal disc height and morphology. Normal central canal and intervertebral neuroforamina. Normal visualized soft tissue structures. CT/Spine Cervical without Contras IMPRESSION: Multilevel degenerative changes, as described above. Electronically Signed: Porfirio Landry, at 11:01 EDT , Service support ,
--- NOTE | 2020-03-28 09:52 | ED.DCSUM_ITS ---
History of Present Illness Chief Complaint: Back Informant: Patient Occurred: Today Mechanism/Context: Trip Usually ambulates: Without assistance Quality of Pain: Aching Narrative: Patient is a 49-year-old male with history of DVT, currently on Coumadin, as well as chronic pain presenting from home after a fall downstairs. Patient states he tripped on the stairs, he thinks he might of been a toy on the stairs. He fell down about 6 or 7 steps. He states he tumbled and rolled when he fell. He laid on the ground for about 15 minutes but does not think he lost consciousness. He is not sure if he hit his head. He started having pain in his lower back as well as his left hip. He does have a history of a right hip replacement. Patient took some anti-inflammatory that his girlfriend gave to him but it did not help. He came to emergency room for further evaluation. He denies any associated chest pain, nausea, vomiting or abdominal pain. He denies any numbness in his extremities or new weakness. Patient states he has chronic weakness of his left hand after an injury. No other complaints at this time. Past Medical History - Allergies and Home Meds Allergies/Adverse Reactions: Allergies Penicillins Allergy (Verified 03/28/20 09:23) Swelling venom-honey bee [bee venom (honey bee)] Allergy (Verified 03/28/20 09:23) Anaphylaxis Primary Care Physician: Pedro Leon MD [STAFF PHYSICIAN] - Past Medical History: - - Peripheral vascular disease, DVT, history of stroke, history of PE, bilateral necrosis of femoral heads, asthma, chronic pain Surgical History: total hip arthroplasty, tonsillectomy, - - left wrist surgery, right IVC filter Lives: Spouse/ Significant Other Smoking Status: Current some day smoker Review of Systems General: Denies: Chills, Fever, Sweats Eyes: Denies: Visual changes - bilaterally, Diplopia ENT: Denies: Rhinorrhea, Sore throat Cardiovascular: Denies: Chest pain, Palpitations Respiratory: Denies: Dyspnea, Cough, Dyspnea on exertion Gastrointestinal: Denies: Abdominal pain, Nausea, Vomiting, Diarrhea, Melena, Hematochezia Genitourinary: Denies: Dysuria, Hematuria, Frequency Musculoskeletal: Reports: Back pain - Lower back, Extremity Pain - Left hip Skin: Denies: Rash, Wounds Neurological: Denies: Headache, Weakness, Numbness Physical Exam Vital Signs/Narrative: Vital Signs Temp Pulse Resp BP Pulse Ox 03/28/20 09:22 97 F L 76 15 126/73 H 100 Inital Vital Signs reviewed: Yes General: Well nourished, Well developed Head: Normocephalic, Atraumatic Eyes: Perrl, EOMI ENT: TM's clear, No hemotympanum or drainage, No trauma. Negative for: Nasal septal hematoma Neck: Nontender, Full ROM. Negative for: Spinal Tenderness, Paraspinal Tenderness Cardiovascular: Regular rate, Regular rhythm, No murmurs Respiratory: No distress, CTA bilaterally, Chest nontender Abdomen: Soft, Nontender, Nondistended, Normal bowel sounds Back: Spinal Tenderness - Lumbar, Paraspinal Tenderness - Lumbar, left Extremeties: No obvious deformity. Pain to palpation of the left greater trochanter area. Range of motion is intact. Chronic edema of the right lower calf consistent with prior DVT. Contracture of left hand from prior injury, no acute change. Skin: Normal color, No rash Neurological: Alert, Oriented x3, Cranial nerves II-XII grossly intact, Normal Strength, Normal Sensation Psychological: Normal affect Diagnostic/Tx/Re-eval Clinical Impression(s) from Imaging Studies Cervical Spine CT 03/28/20 09:48 IMPRESSION: Multilevel degenerative changes, as described above. Electronically Signed: Porfirio Landry, at 11:01 EDT , Service support , Hip/Pelvis X-Ray 03/28/20 09:48 IMPRESSION: Degenerative changes of the left hip joint. The patient is status post right total hip replacement. Electronically Signed: Porfirio Landry, at 10:59 EDT , Service support , Lumbar Spine X-Ray 03/28/20 09:48 IMPRESSION: Degenerative changes of the spine, as detailed above. Inferior vena cava filter. Electronically Signed: Porfirio Landry, at 10:58 EDT , Service support , Brain CT 03/28/20 10:25 IMPRESSION: Normal unenhanced CT scan of the brain. Electronically Signed: Porfirio Landry, at 10:52 EDT , Service support , Laboratory Data 03/28/20 03/28/20 10:19 10:19 WBC 4.4 RBC 4.20 L Hgb 12.6 L Hct 38.7 L MCV 92.1 MCH 30.0 MCHC 32.6 RDW Std Deviation 44.5 H RDW Coeff of Jordyn 13.2 Plt Count 201 MPV 10.2 Immature Gran % (Auto) 0.200 Neut % (Auto) 51.2 Lymph % (Auto) 37.0 [place] % (Auto) 10.0 Eos % (Auto) 1.4 Baso % (Auto) 0.2 Absolute Neuts (auto) 2.3 Absolute Lymphs (auto) 1.63 Nucleated RBC % 0 PT 12.1 INR 0.9 - Medical Decision Making Patient is evaluated after mechanical fall. He fell down 6 or 7 steps. Patient states he is on Coumadin and believes his INR was normal 1 week ago. I did check an INR given the reported trauma. It is subtherapeutic at 0.9. Did question the patient whether he is truly on Coumadin and not something else like Eliquis or Xarelto however patient insisted he is on Coumadin. Head CT and C- spine are obtained given his mechanism of injury as well as plain films of his left hip and lumbar spine as this is where his pain is. Does not have any midline spinal tenderness. He has a normal neurologic exam for his lower extremities. He does not have any acute process seen on imaging. Patient is given a dose of morphine in the ER for pain control. He is discharged home on Tylenol and Flexeril for symptomatic control. He is counseled to likely be sore for the next few days but he does not appear to have any internal injuries or fractures. Patient is instructed to call the doctor that manages his Coumadin for further dosage adjustments and to let him know that his INR is subtherapeutic today at 0.9. Patient is counseled on signs and symptoms requiring return to the emergency room. Patient verbalizes agreement and understand this plan. Patient discharged home in stable and improved condition. ED Disposition - Plan for ED Patient: Disposition: Home or Assisted Living Diagnosis: Fall (on) (from) other stairs and steps, initial encounter, Subtherapeutic anticoagulation, Low back pain Instructions: ED Mechanical Fall, ED Neck Back Pain General Prescriptions: cycloBENZAPRine HCl [Flexeril] 10 mg PO TID PRN #20 tab PRN Reason: Muscle Spasm Transmission Status: Received by [id number] Referrals: Pedro Leon MD [STAFF PHYSICIAN] - Additional Instructions: Your INR level was low today at 0.9. Please call your doctor that manages your Coumadin today for dosage adjustment. Do not sustain any obvious injuries on your x-rays or CT from your fall. You likely will be sore. Take Tylenol and the muscle relaxer prescribed you for pain. Apply heat to your back.
[2020-03-28] MEDS: Morphine 4 MG/ML Syringe IV (10:16)
--- NOTE | 2020-03-28 10:25 | CT_ITS ---
STUDY: CT BRAIN WITHOUT CONTRAST REASON FOR EXAM: Male, 49 years old. S/P FALL ON STAIRS. LEFT HIP PAIN. HX-CVA, DVT''S, HAS AMOS FILTER RADIATION DOSAGE (If Supplied By Facility): CTDIvol = ( 44.99 ) mGy, DLP = ( 812.98 ) mGycm TECHNIQUE: Transaxial CT imaging of the brain was performed without administration of intravenous contrast material. Individualized dose optimization techniques were used for this CT. COMPARISON: Comparison is made with prior study dated 08/23/2019. FINDINGS: Normal soft tissue structures. Normal calvarium. Normal size ventricles and extra-axial spaces for the patient''s age. Normal white matter tracts of the cerebral hemispheres. Normal basal ganglia and thalami. Normal brainstem. Normal cerebellum. There is no intracranial hemorrhage. There are no findings of an acute ischemic infarction. Normal visualized paranasal sinuses. CT/Brain/Head without Contrast IMPRESSION: Normal unenhanced CT scan of the brain. Electronically Signed: Porfirio Landry, at 10:52 EDT , Service support ,
[2020-03-28 10:26] LABS: Absolute Lymphocyte Count 1.63 X10^3/uL (0.83-4.51); Absolute Neutrophil Count 2.3 X10^3/uL (2.0-7.7); Basophil# 0.01 X10^3/uL; Basophil% 0.2 % (0-1); Eosinophil# 0.06 X10^3/uL; Eosinophils% 1.4 % (0-5); Hematocrit 38.7 % (40-54); Hemoglobin 12.6 g/dL (13.0-16.5); Lymphocyte # 1.63 X10^3/ul (4.0); Mean Corp Hgb Conc 32.6 g/dL (32-36); Mean Corpuscular Volume 92.1 fL (80-94); Mean Platelet Vol. 10.2 fl (6.2-12.0); Monocyte# 0.44 X10^3/uL; NRBC Flagged by Analyzer 0 % (0-5); Neutrophil # 2.25 X10^3/uL (2.7-7.7); Neutrophil % 51.2 % (47-70); Platelet Count 201 K/mm3 (150-450); RBC Distribution Width CV 13.2 % (11.6-14.6); RBC Distribution Width SD 44.5 fl (35.1-43.9); White Blood Count 4.4 K/mm3 (4.4-11.0)
[2020-03-28 10:36] LABS: International Normalized Ratio 0.9; Prothrombin Time (Protime)PT. 12.1 SECONDS (11.7-14.9)
== END 2020-03-28 11:55 | disposition home or self-care (01) ==
PROVIDERS: Emergency Provider Emergency Medicine
DX: R79.1 Abnormal coagulation profile (principal); M54.5 Low back pain; J45.909 Unspecified asthma, uncomplicated; Z79.01 Long term (current) use of anticoagulants; Z86.711 Personal history of pulmonary embolism; Z86.718 Personal history of other venous thrombosis and embolism; Z86.73 Personal history of transient ischemic attack (TIA), and cerebral infarction without residual deficits; Z96.641 Presence of right artificial hip joint; W10.9XXA Fall (on) (from) unspecified stairs and steps, initial encounter
CPT/HCPCS: 70450; 72100; 72125; 73502; 85025; 85610; 96374; 99284; A4216

== ENCOUNTER 2021-02-23 15:09 | Emergency (ER) | payer MEDICAID, SELFPAY ==
[2021-02-23 15:09] VITALS: BP 115/82; PULSE 131; RESP 22; TEMP 36.3; O2SAT 97; BMI 23.0
--- NOTE | 2021-02-23 15:11 | RAD_ITS ---
STUDY: X-RAY - RIGHT KNEE REASON FOR EXAM: Male, 50 years old. FALL FROM LADDER TECHNIQUE: 4 view(s) of the knee. COMPARISON: None. FINDINGS: Normal visualized distal femur. Normal visualized proximal tibia and fibula. Normal proximal tibiofibular articulation. Normal medial femorotibial compartment. Normal lateral femorotibial compartment. Normal patellofemoral articulation. The soft tissue structures are unremarkable. RAD/Knee 4 or More Views IMPRESSION: Normal x-ray examination of the knee. Electronically Signed: Miller Shaw MD at 15:54 EDT Tel , Service support ,
--- NOTE | 2021-02-23 15:11 | RAD_ITS ---
STUDY: X-RAY - RIGHT TIBIA AND FIBULA REASON FOR EXAM: Male, 50 years old. FALL FROM LADDER TECHNIQUE: 2 view(s) of the tibia and fibula were obtained. COMPARISON: None. FINDINGS: Normal visualized tibia. Normal visualized fibula. The soft tissue structures are unremarkable. RAD/Tibia & Fibula 2 Views IMPRESSION: Normal x-ray examination of the tibia and fibula. Electronically Signed: Miller Shaw MD at 15:52 EDT Tel , Service support ,
--- NOTE | 2021-02-23 15:11 | RAD_ITS ---
STUDY: X-RAY - LEFT ELBOW REASON FOR EXAM: Male, 50 years old. FALL FROM LADDER TECHNIQUE: 3 view(s) of the elbow. COMPARISON: None. FINDINGS: Normal visualized humerus, radius and ulna. Normal radiocapitellar and ulnotrochlear articulations. The soft tissue structures are unremarkable. RAD/Elbow min 3 Views IMPRESSION: Normal x-ray examination of the elbow. Electronically Signed: Miller Shaw MD at 15:54 EDT Tel , Service support ,
--- NOTE | 2021-02-23 15:11 | RAD_ITS ---
STUDY: X-RAY - RIGHT ANKLE REASON FOR EXAM: Male, 50 years old. FALL FROM LADDER TECHNIQUE: 3 view(s) of the ankle. COMPARISON: None. FINDINGS: Normal visualized distal tibia and fibula. Normal medial and lateral malleoli. Normal tibiotalar articulation and ankle mortise. Normal visualized talus and calcaneus. The visualized subtalar, talonavicular, calcaneocuboid and tarsal articulations are normal. The soft tissue structures are unremarkable. RAD/Ankle min 3 Views IMPRESSION: Normal x-ray examination of the ankle. Electronically Signed: Miller Shaw MD at 15:56 EDT Tel , Service support ,
--- NOTE | 2021-02-23 15:19 | RAD_ITS ---
STUDY: X-RAY - LEFT ANKLE REASON FOR EXAM: Male, 50 years old. FALL FROM LADDER TECHNIQUE: 3 view(s) of the ankle. COMPARISON: None. FINDINGS: Normal visualized distal tibia and fibula. Normal medial and lateral malleoli. Normal tibiotalar articulation and ankle mortise. Normal visualized talus and calcaneus. The visualized subtalar, talonavicular, calcaneocuboid and tarsal articulations are normal. The soft tissue structures are unremarkable. RAD/Ankle min 3 Views IMPRESSION: Normal x-ray examination of the ankle. Electronically Signed: Miller Shaw MD at 15:56 EDT Tel , Service support ,
--- NOTE | 2021-02-23 15:20 | RAD_ITS ---
STUDY: X-RAY - LEFT TIBIA AND FIBULA REASON FOR EXAM: Male, 50 years old. FALL FROM LADDER TECHNIQUE: 2 view(s) of the tibia and fibula were obtained. COMPARISON: None. FINDINGS: Normal visualized tibia. Normal visualized fibula. The soft tissue structures are unremarkable. RAD/Tibia & Fibula 2 Views IMPRESSION: Normal x-ray examination of the tibia and fibula. Electronically Signed: Miller Shaw MD at 15:52 EDT Tel , Service support ,
--- NOTE | 2021-02-23 15:20 | RAD_ITS ---
STUDY: X-RAY - LEFT KNEE REASON FOR EXAM: Male, 50 years old. FALL FROM LADDER TECHNIQUE: 4 view(s) of the knee. COMPARISON: None. FINDINGS: Normal visualized distal femur. Normal visualized proximal tibia and fibula. Normal proximal tibiofibular articulation. Normal medial femorotibial compartment. Normal lateral femorotibial compartment. Normal patellofemoral articulation. The soft tissue structures are unremarkable. RAD/Knee 4 or More Views IMPRESSION: Normal x-ray examination of the knee. Electronically Signed: Miller Shaw MD at 15:55 EDT Tel , Service support ,
--- NOTE | 2021-02-23 16:22 | CT_ITS ---
STUDY: CT BRAIN WITHOUT CONTRAST REASON FOR EXAM: Male, 50 years old. fall RADIATION DOSAGE (If Supplied By Facility): CTDIvol = ( 44.99 ) mGy, DLP = ( 796.11 ) mGycm TECHNIQUE: Transaxial CT imaging of the brain was performed without administration of intravenous contrast material. Individualized dose optimization techniques were used for this CT. COMPARISON: 03/28/2020 FINDINGS: Normal soft tissue structures. Normal calvarium. Normal size ventricles and extra-axial spaces for the patient''s age. Normal white matter tracts of the cerebral hemispheres. Normal basal ganglia and thalami. Normal brainstem. Normal cerebellum. There is no intracranial hemorrhage. There are no findings of an acute ischemic infarction. Normal visualized paranasal sinuses. CT/Brain/Head without Contrast IMPRESSION: Normal unenhanced CT scan of the brain. Electronically Signed: Miller Shaw MD at 16:48 EDT Tel , Service support ,
--- NOTE | 2021-02-23 16:22 | CT_ITS ---
STUDY: CT CERVICAL SPINE WITHOUT CONTRAST REASON FOR EXAM: Male, 50 years old. fall RADIATION DOSAGE (If Supplied By Facility): CTDIvol = ( 23.15 ) mGy, DLP = ( 472.56 ) mGycm TECHNIQUE: High resolution transaxial imaging was performed without contrast material. Sagittal and coronal images were reconstructed. Individualized dose optimization techniques were used for this CT. COMPARISON: 03/28/2020 FINDINGS: Normal craniovertebral junction. There are degenerative changes of the anterior atlantoaxial articulation. Normal odontoid process. There is straightening of the normal cervical lordosis. Normal vertebral bodies and posterior osseous elements. C2-3: Normal endplates. Normal disc height and morphology. Normal central canal and intervertebral neuroforamina. C3-4: Normal endplates. Normal disc height and morphology. Normal central canal and intervertebral neuroforamina. C4-5: Normal endplates. Normal disc height and morphology. Normal central canal and intervertebral neuroforamina. C5-6: Normal endplates. Normal disc height and morphology. Normal central canal and intervertebral neuroforamina. C6-7: Normal endplates. Normal disc height and morphology. Normal central canal and intervertebral neuroforamina. C7-T1: Normal endplates. Normal disc height and morphology. Normal central canal and intervertebral neuroforamina. Normal visualized soft tissue structures. CT/Spine Cervical without Contras IMPRESSION: No acute fracture or subluxation. Electronically Signed: Miller Shaw MD at 16:51 EDT Tel , Service support ,
[2021-02-23 16:45] VITALS: BP 148/88; PULSE 72; RESP 16; O2SAT 100
[2021-02-23] MEDS: Acetaminophen 500 MG Tablet 1000 MG PO (16:49)
--- NOTE | 2021-02-23 16:51 | ED.RN ---
pt reports he is out of all his home medications. dr. rodas.
--- NOTE | 2021-02-23 18:00 | EDS_ITS ---
HPI HPI - Fall History of Present Illness Chief Complaint: Fall Narrative Narrative: Patient presenting for evaluation secondary to a fall. 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 He does report that he hit his head, is unsure if he lost consciousness. Patient reports that he has generalized pain in his head, neck, left elbow, and bilateral legs and ankles. Patient states that he was able to ambulate following the accident but with a limp. Patient is supposed to be anticoagulated secondary to history of pulmonary emboli, but states that he has not taken his medications in 3 days because he has been out of them. He denies any visual changes numbness or weakness. Pain is moderate worse with any sort of palpation or movement. Review of systems otherwise n egative. [facility] Medical History Chronic pain CVA (cerebral vascular accident) History of blood clots Pulmonary embolism Home Medications ammonium lactate 12 % topical cream 1 applic TOPICAL BID #140 g 12/23/17 [Rx Last Taken Unknown] apixaban 2.5 mg tablet 5 mg PO BID tab 12/30/17 [History Last Taken Unknown] albuterol sulfate 90 mcg/actuation aerosol inhaler 2 puff INHALATION Q4H PRN #6.7 g 01/19/18 [Rx Last Taken Unknown] melatonin 5 mg capsule 5 mg PO QDAY PRN #30 cap 01/19/18 [Rx Last Taken Unknown] mometasone 2 inh INHALATION BID #1 ea 01/19/18 [Rx Last Taken Unknown] tramadol 50 mg tablet 50 mg PO Q8H PRN #30 tab 01/19/18 [Rx Last Taken Unknown] gabapentin 300 mg PO QHS 02/24/19 [History Last Taken Unknown] cyclobenzaprine 10 mg PO TID PRN #20 tab 08/23/19 [Rx Last Taken Unknown] Allergy/AdvReac Type Severity Reaction Status Date / Time Penicillins Allergy Swelling Verified 03/28/20 09:23 venom-honey bee Allergy Anaphylaxis Verified 03/28/20 09:23 [bee venom (honey bee)] Surgical History history of left wrist surgery History of right hip replacement Social History Smoking Status: Current some day smoker tobacco type: cigarettes Tobacco: How many years used: 10 how long ago did patient quit smokin alcohol intake: never substance use type: does not use what type of physical activity do you participate in: walking frequency: daily ROS ROS ED Constitutional Constitutional ED: Denies chills or fever(s) ENT ENT ED: Denies rhinorrhea Cardiovascular Cardiovascular: Denies chest pain Respiratory/Chest Respiratory/Chest: Denies cough or dyspnea Gastrointestinal Gastrointestinal: Denies abdominal pain, diarrhea, nausea or vomiting Genitourinary Genitourinary ED: Denies dysuria or hematuria Musculoskeletal Musculoskeletal: Reports arthralgias, back pain, myalgias and neck pain Integumentary Denies rash Neurologic Neurologic: Denies paresthesias or weakness Psychiatric Psychiatric: Denies depression Endocrine Endocrinology: Denies fatigue Allergic/Immunologic Allergic/Immunologic ED: Denies urticaria EXAM Physical Exam Const Vital Signs: 02/23/21 15:09 02/23/21 16:45 Temperature 97.4 F L Temperature Source Temporal Pulse Rate 131 H 72 Respiratory Rate 22 H 16 Respiratory Effort Normal Non-Labored Respiratory Depth Normal Respiratory Pattern Normal Blood Pressure 115/82 H 148/88 H Blood Pressure Mean 93 108 Pulse Ox 97 100 Oxygen Delivery Method Room Air Room Air Positive well nourished and well developed Constitutional Narrative: Airway is patent, breath sounds are equal bilateral, 2+ radial pulses bilaterally symmetric. GCS is 15 out of 15. Thin well-appearing age-appropriate male who does appear somewhat in pain but is otherwise not in physiologic distress General Appearance ED: well developed and NAD HEENT Reports moist mucous membranes Negative for trauma or tenderness Eyes EOMs intact bilaterally Neck no lymphadenopathy, supple and no JVD Neck Narrative: Patient complains of diffuse nonlocalizing neck tenderness there is no evidence of step-offs Chest Wall inspection of chest normal and palpation of chest normal Resp normal respiratory effort and clear to auscultation bilaterally Cardio regular rate, regular rhythm, no murmurs and peripheral pulses 2+ throughout Cardio Narrative: Patient was tachycardic on triage she was not tachycardic on my exam. GI normal to inspection, nondistended, normoactive bowel sounds, non-tender and no masses Palpation: soft Back/Spine normal to inspection Back/Spine Narrative: No midline thoracic or lumbar spine tenderness palpation is noted Extremity Extremity Narrative: Patient complains with some pain on palpation of his left elbow, there is no obvious signs of deformity. Normal distal sensation and pulses. Diffuse pain over the bilateral tibias. Patient has a chronic wound on his tibia on the right side that does not appear to be cellulitic. There is a mild abrasion on the left. Ankles are atraumatic and diffusely tender, no focal malleoli or tenderness. General Extremety ED: Negative for tenderness Neuro oriented x3 and no sensory deficits noted Sensorium / Orientation: alert Motor Exam: strength 5/5 throughout Psych mental status grossly normal Skin no rashes or lesions noted MDM MDM MDM Narrative Medical decision making narrative: Patient presented secondary to fall. CT imaging of the brain and cervical spine were found to be unremarkable per radiology. Protocol x-rays were ordered by nursing. Bilateral ankles, bilateral knees, bilateral tib-fib's, and left elbow x-rays were obtained. I reviewed all of these individually and agree with the radiology read that there is no evidence of acute fracture. Patient was given Tylenol initially without improvement of his pain, he was then given a dose of oxycodone. I do not be lieve the patient requires chest or abdominal imaging as he has been off of his Eliquis for 3 days and has normal clotting given that. Patient was given reassurance and he was discharged in stable condition. Radiography Diagnostic Testing: Radiology Impression Ankle X-Ray 02/23/21 15:11 IMPRESSION: Normal x-ray examination of the ankle. Electronically Signed: Miller Shaw MD at 15:56 EDT Tel , Service support , Elbow X-Ray 02/23/21 15:11 IMPRESSION: Normal x-ray examination of the elbow. Electronically Signed: Miller Shaw MD at 15:54 EDT Tel , Service support , Knee X-Ray 02/23/21 15:11 IMPRESSION: Normal x-ray examination of the knee. Electronically Signed: Miller Shaw MD at 15:54 EDT Tel , Service support , Tibia/Fibula X-Ray 02/23/21 15:11 IMPRESSION: Normal x-ray examination of the tibia and fibula. Electronically Signed: Miller Shaw MD at 15:52 EDT Tel , Service support , Ankle X-Ray 02/23/21 15:19 IMPRESSION: Normal x-ray examination of the ankle. Electronically Signed: Miller Shaw MD at 15:56 EDT Tel , Service support , Knee X-Ray 02/23/21 15:20 IMPRESSION: Normal x-ray examination of the knee. Electronically Signed: Miller Shaw MD at 15:55 EDT Tel , Service support , Tibia/Fibula X-Ray 02/23/21 15:20 IMPRESSION: Normal x-ray examination of the tibia and fibula. Electronically Signed: Miller Shaw MD at 15:52 EDT Tel , Service support , Brain CT 02/23/21 16:22 IMPRESSION: Normal unenhanced CT scan of the brain. Electronically Signed: Miller Shaw MD at 16:48 EDT Tel , Service support , Cervical Spine CT 02/23/21 16:22 IMPRESSION: No acute fracture or subluxation. Electronically Signed: Miller Shaw MD at 16:51 EDT Tel , Service support , Discharge Plan Triage Chief Complaint: Fall ED Provider: Harshad Menendez Dx/Rx/DC Orders Clinical Impression: Fall from ladder Instructions: ED Mechanical Fall Prescriptions: No Action ammonium lactate 12 % topical cream 12 % cream 1 applic TOPICAL BID Qty: 140 RF: 2 apixaban [Eliquis] 2.5 mg tablet 5 mg PO BID RF: 0 tramadol 50 mg tablet 50 mg PO Q8H PRN (Reason: pain) Qty: 30 RF: 0 melatonin 5 mg capsule 5 mg PO QDAY PRN (Reason: insomnia) Qty: 30 RF: 1 albuterol sulfate [Ventolin HFA] 90 mcg/actuation HFA aerosol inhaler 2 puff INHALATION Q4H PRN (Reason: shortness of breath or wheezing) Qty: 6.7 RF: 2 mometasone [Asmanex Twisthaler] 220 mcg (30 doses) aerosol powdr breath activated 2 inh INHALATION BID Qty: 1 RF: 1 gabapentin 300 MG capsule 300 mg PO QHS RF: 0 cyclobenzaprine 10 MG tablet 10 mg PO TID PRN (Reason: Muscle Spasm) Qty: 20 RF: 0 Primary Care Provider: Care Physician,No Primary Referrals: Care Physician,No Primary [Primary Care Provider] - Activity Restrictions/Additional Instructions: Followup with your PCP as needed Disposition Disposition: Home, Self Care
[2021-02-23] MEDS: oxyCODONE 5 MG Tablet PO (18:14)
[2021-02-23 18:22] VITALS: BP 137/80; RESP 16
== END 2021-02-23 18:22 | disposition home or self-care (01) ==
PROVIDERS: Emergency Provider Emergency Medicine
DX: Z04.3 Encounter for examination and observation following other accident (principal); F17.210 Nicotine dependence, cigarettes, uncomplicated; Z86.711 Personal history of pulmonary embolism; Z86.718 Personal history of other venous thrombosis and embolism; Z79.01 Long term (current) use of anticoagulants
CPT/HCPCS: 70450; 72125; 73080; 73564; 73590; 73610; 99283

== ENCOUNTER 2021-11-22 09:57 | Emergency (ER) | payer MEDICAID, SELFPAY ==
[2021-11-22 09:58] VITALS: BP 133/89; PULSE 73; RESP 14; TEMP 36.4; O2SAT 99; BMI 23.0
--- NOTE | 2021-11-22 10:15 | CT_ITS ---
STUDY: CT BRAIN WITHOUT CONTRAST REASON FOR EXAM: Male, 51 years old. Head injury RADIATION DOSAGE (If Supplied By Facility): CTDIvol = ( 31.13 ) mGy, DLP = ( 1168.69 ) mGycm TECHNIQUE: Transaxial CT imaging of the brain was performed without administration of intravenous contrast material. Individualized dose optimization techniques were used for this CT. COMPARISON: Head CT dated February 23, 2021 FINDINGS: Normal soft tissue structures. Normal calvarium. Normal size ventricles and extra-axial spaces for the patient''s age. Normal white matter tracts of the cerebral hemispheres. Normal basal ganglia and thalami. Normal brainstem. Normal cerebellum. There is no intracranial hemorrhage. There are no findings of an acute ischemic infarction. Normal visualized paranasal sinuses. Small mucous retention cyst of the right maxillary sinus. CT/Brain/Head without Contrast IMPRESSION: Negative unenhanced CT scan of the brain. Electronically Signed: Russel Falcon MD at 11:25 EDT ,
--- NOTE | 2021-11-22 10:18 | EDS_ITS ---
HPI <JV Odraz - Last Filed: 11/22/21 12:56> History of Present Illness Chief Complaint: Upper Extremity Injury Narrative Narrative: 51-year-old male with history of blood clots to the right leg who takes Coumadin presents to the emergency department after a fall down he states 10-15 steps. Patient states that his leg gave out this morning around 4 AM, he fell injuring his right wrist, lower back is hitting his head. Patient denies any LOC. Patient states that he noticed swelling to his left wrist, thought it would go down however he was unable to move it and he called EMS. Patient is on Coumadin for blood clots to his right leg, this has been a chronic problem since the s. Patient states he has not taken his Coumadin for the last 5 days. He denies any fevers or chills. Denies any other injury. Patient is moving all extremities. 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 [facility] <JV Ordaz - Last Filed: 11/22/21 12:56> [facility] Medical History Chronic pain CVA (cerebral vascular accident) History of blood clots Pulmonary embolism Home Medications ammonium lactate 12 % topical cream 1 applic TOPICAL BID #140 g 12/23/17 [Rx Last Taken Unknown] albuterol sulfate 90 mcg/actuation aerosol inhaler 2 puff INHALATION Q4H PRN #6.7 g 01/19/18 [Rx Last Taken Unknown] melatonin 5 mg capsule 5 mg PO QDAY PRN #30 cap 01/19/18 [Rx Last Taken Unknown] mometasone 2 inh INHALATION BID #1 ea 01/19/18 [Rx Last Taken Unknown] tramadol 50 mg tablet 50 mg PO Q8H PRN #30 tab 01/19/18 [Rx Last Taken Unknown] gabapentin 300 mg PO QHS 02/24/19 [History Last Taken Unknown] cyclobenzaprine 10 mg PO TID PRN #20 tab 08/23/19 [Rx Last Taken Unknown] warfarin [Coumadin] 6 mg PO TID 11/22/21 [History Last Taken Unknown] Allergy/AdvReac Type Severity Reaction Status Date / Time Penicillins Allergy Swelling Verified 11/22/21 10:01 venom-honey bee Allergy Anaphylaxis Verified 11/22/21 10:01 [bee venom (honey bee)] Surgical History history of left wrist surgery History of right hip replacement Social History Smoking Status: Current some day smoker tobacco type: cigarettes Tobacco: How many years used: 10 how long ago did patient quit smokin alcohol intake: never substance use type: does not use what type of physical activity do you participate in: walking frequency: daily ROS <JV Ordaz - Last Filed: 11/22/21 12:56> ROS ED ROS Narrative Constitutional: Negative for fever, chills, weight loss, weakness Eyes: Negative for vision loss, vision change, double vision ENT: Negative for any sore throat, ear pain, congestion Cardiovascular: Negative for any chest pain, tightness, palpitations, racing heartbeat Respiratory: Negative for any cough, sputum production, hemoptysis, shortness of breath, shortness of breath on exertion, orthopnea Gastrointestinal: Negative for any abdominal pain, nausea, vomiting, diarrhea, constipation, blood in stool, blood in vomit : Negative for any urinary frequency, incontinence, dysuria, retention, blood in urine Muscle skeletal: Negative for any muscle joint pain, stiffness, myalgias, arthralgias, neck pain. Positive for back pain, left wrist pain Neurological: Negative for any headache, dizziness, syncope, numbness or tingling Skin: Negative for any rashes, lumps, itching, abrasions, lacerations Psychiatric: Negative for any depression, anxiety, stress, suicidal ideation, homicidal ideation Hematologic: Negative for any easy bruising, excessive bruising, easy bleeding Allergies: Negative for any eczema, hives, rash EXAM <JV Ordaz - Last Filed: 11/22/21 12:56> Physical Exam Narrative Exam Narrative: Vital signs reviewed. Patient appears well, patient appears nontoxic, patient is in discomfort secondary to left wrist pain HEET: Head normocephalic atraumatic, TMs clear bilaterally. Posterior pharynx is clear, moist mucous membranes. Nares clear bilaterally. Pupils are equal round reactive to light, negative for any hematoma, septal hematoma. Neck: Supple with no lymphadenopathy or tenderness. No signs of meningismus, negative jolt sign. Cardiac: Regular rate and rhythm no murmurs gallops or rubs, equal peripheral pulses bilaterally. Respiratory: Lungs clear to auscultation bilaterally. No chest tenderness. Abdomen: Soft, nontender, nondistended. No abdominal bruit or pulsatile masses. No hepatosplenomegaly Extremities: Patient has edema, deformity to the left wrist, I was able to palpate a radial pulse, patient has a deformity to the left hand which is chronic from a surgery years ago. Patient has pain with any movement. No pain to the medial radius, ulna, elbow. No pain to his shoulder. Neuro: Cranial nerves II through XII intact, no focal neurological deficits. Skin: Clean dry and intact with no rash, purpura, petechiae, vesicles or pustules. Backslash flank: No CVA tenderness, no deformity. Patient does have pain to his lower back, lower lumbar spine as well as to the left lower lumbar spine. Moving all extremities without difficulty. Psych: Normal mood and affect. No SI, HI or acute psychosis. Const Vital Signs: 11/22/21 09:58 Temperature 97.5 F L Temperature Source Oral Pulse Rate 73 Respiratory Rate 14 Blood Pressure 133/89 H Blood Pressure Mean 103 Pulse Ox 99 Oxygen Delivery Method Room Air Positive well nourished and well developed General Appearance ED: well developed [facility] <JV Ordaz - Last Filed: 11/22/21 12:56> [facility] Narrative Medical decision making narrative: Patient appears well, patient appears nontoxic, vital signs are stable. Patient presents to the emergency department with complaints of pain after falling down steps at his house. Patient main injury was the left wrist as well as the lower back. Due to the patient has history of Coumadin use the patient did receive a CT scan of the brain, cervical spine. Patient's x-ray of the left hand, left wrist showed mild to moderate soft tissue swelling no acute fracture. Patient does have a known deformity to the left hand. Patient's lumbar spine x-ray shows no acute fracture or deformity seen. CT scan of the cervical spine and brain were grossly unremarkable. At this time, patient has no acute fractures of the left wrist, he was placed in a wrist splint. He is on Coumadin and is out of his Coumadin currently, I did reach out to social work, to make sure that if we do prescribe him a Coumadin he will be able to follow-up with Coumadin clinic. Unfortunately we do not have a Coumadin clinic here, therefore I do not think it is responsible to prescribe Coumadin. Patient will be given primary care follow-up and instructed to ice and elevate his left wrist. Patient instructed to return for any worsening symptoms. Patient stable for discharge <Dr. Palak Collins, - Last Filed: 11/24/21 17:20> [facility] MDM Narrative Medical decision making narrative: I have personally performed a face to face assessment of the patient and have reviewed the NAHTAN Note. I performed a substantive portion of the visit including all aspects of the following. My clark findings include: History is patient is a 51-year-old male with history of DVT that supposed be on chronic Coumadin therapy presenting after trip and fall. He injured his left wrist as well as his lower back. Patient states he ran out of his Coumadin so is not been on it. Denies any chest pain, shortness of breath or difficulty breathing. On exam patient is normocephalic atraumatic. No hemotympanum. No signs of head trauma. Normal range of motion of the neck. No midline tenderness. Patient does have chronic contracture of his left hand and some mild wrist swelling with diffuse tenderness to palpation. No bony deformity. Normal elbow exam. No focal neurologic deficits appreciated. Evaluation for injuries associate with the fall is negative. No signs of acute fracture. Patient's INR level is negative. Counseled patient that given that he does not have outpatient follow-up to have his INR checked and we do not have a Coumadin clinic affiliated with this hospital I not comfortable prescribing him Coumadin because of it not being monitored in the risk of supratherapeutic levels and then subsequent bleed. Patient is evaluated by case management for further outpatient resources. He is agreeable with this plan of care. Other additions or changes: [None] Discharge Plan Triage Chief Complaint: Upper Extremity Injury ED Midlevel Provider: Ervin Barnes ED Provider: Palak Collins Dx/Rx/DC Orders Clinical Impression: Fall, Lumbar contusion, Left wrist sprain Instructions: Back Safety: Sleeping Positions, ED Fall with Uncertain Cause, ED Wrist Sprain Prescriptions: No Action ammonium lactate 12 % topical cream 12 % cream 1 applic TOPICAL BID Qty: 140 RF: 2 tramadol 50 mg tablet 50 mg PO Q8H PRN (Reason: pain) Qty: 30 RF: 0 melatonin 5 mg capsule 5 mg PO QDAY PRN (Reason: insomnia) Qty: 30 RF: 1 albuterol sulfate [Ventolin HFA] 90 mcg/actuation HFA aerosol inhaler 2 puff INHALATION Q4H PRN (Reason: shortness of breath or wheezing) Qty: 6.7 RF: 2 mometasone [Asmanex Twisthaler] 220 mcg (30 doses) aerosol powdr breath activated 2 inh INHALATION BID Qty: 1 RF: 1 gabapentin 300 MG capsule 300 mg PO QHS RF: 0 cyclobenzaprine 10 MG tablet 10 mg PO TID PRN (Reason: Muscle Spasm) Qty: 20 RF: 0 warfarin [Coumadin] 6 mg Tablet 6 mg PO TID RF: 0 Primary Care Provider: Care Physician,No Primary Referrals: Harshad Tate DO [STAFF PHYSICIAN] - Hubert Fish DO [STAFF PHYSICIAN] - Care Physician,No Primary [Primary Care Provider] - Activity Restrictions/Additional Instructions: Please ice and elevate your left wrist, use the splint as needed. You have no broken bones on her x-rays today. If pain persist, you need to follow-up with orthopedics. Due to not being able to monitor your Coumadin level, you need to follow-up with a primary care provider that can not only prescribe you Coumadin but also follow your levels. It is not safe for us to start you on Coumadin without being able to monitor your levels. You have increased risk of bleeding. Print Language: [place] Disposition Disposition: Home, Self Care Discharge Date/Time: 11/22/21 13:17
--- NOTE | 2021-11-22 10:20 | CT_ITS ---
STUDY: CT CERVICAL SPINE WITHOUT CONTRAST REASON FOR EXAM: Male, 51 years old. Fall injury RADIATION DOSAGE (If Supplied By Facility): CTDIvol = ( 31.13 ) mGy, DLP = ( 1168.69 ) mGycm TECHNIQUE: High resolution transaxial imaging was performed without contrast material. Sagittal and coronal images were reconstructed. Individualized dose optimization techniques were used for this CT. COMPARISON: CT of the cervical spine dated February 23, 2021 FINDINGS: Normal craniovertebral junction. Normal anterior atlantoaxial articulation. Normal odontoid process. Paraseptal cysts are seen in the apices of both lungs. There is reversal of the normal cervical lordosis. Mild to moderate multilevel disc space narrowing and additional degenerative changes. No significant central canal stenosis is seen. No visualized acute fracture or compression deformity. Unremarkable visualized soft tissue structures. Reactive lymphoid hyperplasia seen throughout the neck. CT/Spine Cervical without Contras IMPRESSION: Multilevel degenerative changes, as described above. Electronically Signed: Russel Falcon MD at 11:21 EDT ,
--- NOTE | 2021-11-22 10:31 | RAD_ITS ---
STUDY: X-RAY - LEFT WRIST REASON FOR EXAM: Male, 51 years old. FALL, DEFORMITY, PAIN PT HAND IS ALWAYS CURLED- UNABLE TO STRAIGHTEN FINGERS TECHNIQUE: 3 view(s) of the wrist were obtained. COMPARISON: Left hand x-ray on the same day FINDINGS: Normal visualized distal radius and ulna. Normal radiocarpal articulation. Normal distal radioulnar articulation. Normal carpal bones. Normal carpal articulations. Normal carpometacarpal articulation of the thumb. Normal second through fifth carpometacarpal articulations. Normal visualized metacarpal bones. Mild to moderate soft tissue swelling is present around the distal forearm and wrist. There is no demonstrated acute fracture. The bony structures are demineralized. RAD/Wrist min 3 Views IMPRESSION: 1. Mild to moderate soft tissue swelling is present around the distal forearm and wrist. There is no demonstrated acute fracture. Electronically Signed: Russel Falcon MD at 11:18 EDT ,
--- NOTE | 2021-11-22 10:31 | RAD_ITS ---
STUDY: X-RAY - LUMBAR SPINE REASON FOR EXAM: Male, 51 years old. fall TECHNIQUE: 4 view(s) of the lumbar spine were obtained. COMPARISON: None FINDINGS: Normal lumbar lordosis. There is no substantial scoliosis. There is a normal alignment of the vertebrae. Normal vertebral bodies. Minimal anterior endplate spurring is present throughout the lumbar spine. Normal disc space heights. No fracture or compression deformity seen. An IVC filter is present as well as a right hip prosthesis. The soft tissue structures are unremarkable. Minor aortic calcifications noted. RAD/L/S Spine Min 4 Views IMPRESSION: No acute fracture or compression deformity seen Electronically Signed: Russel Falcon MD at 11:11 EDT ,
--- NOTE | 2021-11-22 10:31 | RAD_ITS ---
STUDY: X-RAY - LEFT HAND REASON FOR EXAM: Male, 51 years old. FALL, DEFORMITY, PAIN PT HAND IS ALWAYS CURLED- UNABLE TO STRAIGHTEN FINGERS TECHNIQUE: 3 view(s) of the hand. COMPARISON: Left hand x-ray dated August 23, 2019 FINDINGS: Contracture/flexion deformity of the hand unchanged from the prior study. Mild diffuse demineralization is also unchanged. No visualized acute fracture or displaced bony fragment. Normal radiocarpal articulation. Normal distal radioulnar joint. Normal visualized carpal bones. Normal carpal articulations Normal carpometacarpal articulation of the thumb. Normal second through fifth carpometacarpal joints. Normal metacarpi. The soft tissue structures are unremarkable. RAD/Hand Min 3 Views IMPRESSION: 1. Contracture/flexion deformity of the hand unchanged from the prior study. Mild diffuse demineralization is also unchanged. No visualized acute fracture or displaced bony fragment. Electronically Signed: Russel Falcon MD at 11:16 EDT ,
[2021-11-22 10:36] LABS: International Normalized Ratio 0.9; Prothrombin Time (Protime)PT. 12.3 SECONDS (11.7-14.9)
[2021-11-22] MEDS: Ondansetron 4 MG/2 ML Vial IV (11:09)
[2021-11-22] MEDS: Morphine 4 MG/ML Syringe IV (11:09)
--- NOTE | 2021-11-22 11:53 | CM.ED ---
Social Work Note Reason for Referral: NO PCP SW reviewed chart, No PCP listed. SW in to speak with pt. Pt confirms he has no PCP. SW provided pt with PCP list and Where to go and When to go handout. Cori Martell MEDIA MARKETING MANAGER, PRODUCT INFO SPECIALIST
[2021-11-22 13:16] VITALS: BP 137/79; PULSE 64; RESP 14; O2SAT 99
== END 2021-11-22 13:17 | disposition home or self-care (01) ==
PROVIDERS: Nurse Practitioner; Emergency Provider Emergency Medicine; Visit Provider Emergency Medicine
DX: S63.502A Unspecified sprain of left wrist, initial encounter (principal); S30.0XXA Contusion of lower back and pelvis, initial encounter; W10.9XXA Fall (on) (from) unspecified stairs and steps, initial encounter; F17.210 Nicotine dependence, cigarettes, uncomplicated; Z79.01 Long term (current) use of anticoagulants; Z86.711 Personal history of pulmonary embolism; Z86.718 Personal history of other venous thrombosis and embolism; Z86.73 Personal history of transient ischemic attack (TIA), and cerebral infarction without residual deficits
CPT/HCPCS: 70450; 72110; 72125; 73110; 73130; 85610; 96374; 96375; 99284; A4216; J2405

== ENCOUNTER 2024-02-10 13:51 | Emergency (ER) | payer MEDICAID, SELFPAY ==
[2024-02-10 13:51] VITALS: BP 149/118; PULSE 71; RESP 18; TEMP 36.1; O2SAT 97; BMI 21.8
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
--- NOTE | 2024-02-10 15:31 | CT_ITS ---
STUDY: CT BRAIN WITHOUT CONTRAST REASON FOR EXAM: Male, 53 years old. Fall, head trauma on warfarin RADIATION DOSAGE (If Supplied By Facility): CTDIvol = ( 44.99 ) mGy, DLP = ( 829.85 ) mGycm TECHNIQUE: Transaxial CT imaging of the brain was performed without administration of intravenous contrast material. Individualized dose optimization techniques were used for this CT. COMPARISON: No relevant priors. FINDINGS: Normal soft tissue structures. Normal calvarium. Normal size ventricles and extra-axial spaces for the patient''s age. Normal white matter tracts of the cerebral hemispheres. Normal basal ganglia and thalami. Normal brainstem. Normal cerebellum. There is no intracranial hemorrhage. There are no findings of an acute ischemic infarction. Normal visualized paranasal sinuses. CT/Brain/Head without Contrast IMPRESSION: Normal unenhanced CT scan of the brain. Electronically Signed: Clem Fenton MD at 16:10 EDT ,
--- NOTE | 2024-02-10 15:31 | CT_ITS ---
STUDY: CT LUMBAR SPINE WITHOUT CONTRAST REASON FOR EXAM: Male, 53 years old. back pain RADIATION DOSAGE (If Supplied By Facility): CTDIvol = ( 20.25 ) mGy, DLP = ( 699.94 ) mGycm TECHNIQUE: The patient was scanned in a multi detector CT scanner. High resolution transaxial imaging was performed. Images were obtained from to . Sagittal and coronal images were reconstructed. Individualized dose optimization techniques were used for this CT. COMPARISON: None FINDINGS: Normal lumbar lordosis. There is no substantial scoliosis. Normal vertebrae of the lumbar spine. L1-2: Normal endplates. Normal disc height and morphology. Normal bilateral facet joints. Normal central canal and bilateral lateral recesses. Normal bilateral intervertebral neural foramina. L2-3: Normal endplates. Normal disc height and morphology. Normal bilateral facet joints. Normal central canal and bilateral lateral recesses. Normal bilateral intervertebral neural foramina. L3-4: Mild spurring at the endplates. Normal disc height and morphology. Normal bilateral facet joints. Normal central canal and bilateral lateral recesses. Normal bilateral intervertebral neural foramina. L4-5: Mild spurring at the endplates. Normal disc height with mild annular bulge. Normal bilateral facet joints. Normal central canal and bilateral lateral recesses. Bulging disc slightly narrowing the bilateral intervertebral neural foramina. L5-S1: Mild spurring at the endplates. Normal disc height and trace annular bulge. Normal bilateral facet joints. Normal central canal and bilateral lateral recesses. Degenerative spurring and annular bulge slightly narrowing the bilateral intervertebral neural foramina, left more than right. Normal visualized paraspinous soft tissue structures. There is an IVC filter in place. There is a right hip prosthesis in place. . CT/Spine Lumbar without Contrast IMPRESSION: Degenerative changes and discogenic disease as noted of the lumbar spine. Correlate with MRI if needed. Electronically Signed: Galo Mahmood DO at 16:22 EDT ,
--- NOTE | 2024-02-10 15:31 | CT_ITS ---
INDICATION: Left-sided rib pain EXAMINATION: CT CHEST WITHOUT CONTRAST - CT Chest W/O Contrast Injection TECHNIQUE: Helically acquired images were obtained of the chest. A radiation dose optimization technique was used for this scan. IV Contrast dosage and agent: None. COMPARISON: None. FINDINGS: Exam is limited by improper positioning of patient''s arms resulting in significant streak artifact. LUNGS, PLEURA AND LARGE AIRWAYS: Normal lung volumes. Mild bilateral apical subpleural blebs. Streaky and discoid densities in both lung bases, most consistent with patches of subsegmental atelectasis. No masses, consolidation, or edema. No pleural effusion or thickening. No pneumothorax. THYROID: No thyroid lesions. HEART AND PERICARDIUM: Heart size is normal. No pericardial effusion. CORONARY ARTERIES: Coronary artery calcification is seen. VESSELS: Thoracic aorta is not dilated. MEDIASTINUM AND MIRZA: Although no gross mediastinal or hilar mass or adenopathy is seen, adenopathy is difficult to exclude without IV contrast was not given. Esophagus is unremarkable. No hiatal hernia. UPPER ABDOMEN: No acute pathology. BONES: No suspicious lytic or blastic abnormality. No fractures are seen. CT/Chest without Contrast IMPRESSION: Limited as above. There is subsegmental atelectasis scattered in both lung bases. Otherwise negative exam. Electronically Signed: Clem Fenton MD at 16:18 EDT ,
[2024-02-10] MEDS: oxyCODONE 5 MG Tablet PO (15:41)
[2024-02-10 15:49] LABS: Absolute Lymphocyte Count 2.72 X10^3/uL (0.83-4.51); Absolute Neutrophil Count 2.7 X10^3/uL (2.0-7.7); Basophil# 0.02 X10^3/uL; Basophil% 0.3 % (0-1); Eosinophils% 1.6 % (0-5); Hematocrit 40.2 % (40-54); Hemoglobin 13.2 g/dL (13.0-16.5); Lymphocyte # 2.72 X10^3/ul (0.83-4.51); Lymphocyte % 44.7 % (19-41); Mean Corp Hgb Conc 32.8 g/dL (32-36); Mean Corpuscular Hgb 29.9 pg (27.0-32.0); Mean Platelet Vol. 10.6 fl (6.2-12.0); Monocyte# 0.54 X10^3/uL; Monocyte% 8.9 % (0-10); NRBC Flagged by Analyzer 0 % (0-5); Neutrophil # 2.69 X10^3/uL (2.7-7.7); Neutrophil % 44.3 % (47-70); Platelet Count 163 K/mm3 (150-450); RBC Distribution Width CV 13.6 % (11.6-14.6); RBC Distribution Width SD 45.3 fl (35.1-43.9); Red Blood Count 4.42 M/mm3 (4.6-6.2); White Blood Count 6.1 K/mm3 (4.4-11.0)
[2024-02-10 16:00] VITALS: BP 126/80; PULSE 70; RESP 19; O2SAT 92
--- NOTE | 2024-02-10 16:00 | RAD_ITS ---
STUDY: X-RAY - PELVIS AND RIGHT HIP REASON FOR EXAM: Male, 53 years old. hip pain TECHNIQUE: 3 views of the pelvis and hip. COMPARISON: 03/28/2020. FINDINGS: There is a non-specific bowel gas pattern. Normal visualized soft tissue structures. Normal bilateral iliac wings, sacroiliac joints and visualized sacrum. Normal bilateral superior and inferior pubic rami. Normal pubic symphysis. Normal bilateral ischial tuberosities. Stable, satisfactory appearance of right hip arthroplasty. No evidence for loosening. Suspicious appearance of the right femoral head with probable AVN, also present previously. RAD/HIP, UNI W/ Pelvis 2-3 Views IMPRESSION: No acute abnormality. Satisfactory appearance of right hip arthroplasty. 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 Electronically Signed: Clem Fenton MD at 16:22 EDT ,
[2024-02-10 16:09] LABS: Anion Gap 2 (5-15); BUN 9 mg/dL (7-18); BUN/Creat Ratio 9.5 RATIO (10-20); Calcium,Total 9.4 mg/dL (8.5-10.1); Chloride 108 mmol/L (98-107); Creatinine, Serum 0.95 mg/dL (0.70-1.30); EST Glomerular Filtration Rate 88 mL/min (>60); Est Glom Filt Rate - Afr Amer 107 mL/min (>60); Estimated Creatinine Clearance 90.31 ml/min; Glucose 112 mg/dL (74-106); Potassium 4.2 mmol/L (3.5-5.1); Sodium Level 140 mmol/L (136-145)
--- NOTE | 2024-02-10 16:21 | RAD_ITS ---
STUDY: X-RAY - LEFT WRIST REASON FOR EXAM: Male, 53 years old. pain after fall TECHNIQUE: 3 view(s) of the wrist were obtained. COMPARISON: None. FINDINGS: Normal visualized distal radius and ulna. Normal radiocarpal articulation. Normal distal radioulnar articulation. Normal carpal bones. Normal carpal articulations. Normal carpometacarpal articulation of the thumb. Normal second through fifth carpometacarpal articulations. Normal visualized metacarpal bones. The soft tissue structures are unremarkable. There is no demonstrated acute fracture. RAD/Wrist min 3 Views IMPRESSION: Normal x-ray examination of the wrist. Electronically Signed: Clem Fenton MD at 16:44 EDT ,
[2024-02-10 16:22] LABS: Prothrombin Time (Protime)PT. 13.6 SECONDS (11.7-14.9)
[2024-02-10 17:33] VITALS: BP 120/75; PULSE 67; RESP 13; TEMP 36.4; O2SAT 100
== END 2024-02-10 17:56 | disposition home or self-care (01) ==
PROVIDERS: Emergency Provider Emergency Medicine; Visit Provider Emergency Medicine
DX: S09.90XA Unspecified injury of head, initial encounter (principal); F17.210 Nicotine dependence, cigarettes, uncomplicated; Z86.711 Personal history of pulmonary embolism; Z86.73 Personal history of transient ischemic attack (TIA), and cerebral infarction without residual deficits; V18.0XXA Pedal cycle driver injured in noncollision transport accident in nontraffic accident, initial encounter
CPT/HCPCS: 70450; 71250; 72131; 73110; 73502; 80048; 85025; 85610; 93005; 99285; A4216

== ENCOUNTER 2025-03-22 09:27 | Emergency (ER) | payer MEDICAID, SELFPAY ==
[2025-03-22 09:28] VITALS: PULSE 63; RESP 22; TEMP 36.7; O2SAT 100; BMI 24.3
--- NOTE | 2025-03-22 09:48 | CT_ITS ---
PROCEDURE: CTA NECK W/WO CONTRAST 03/22/2025 REASON FOR EXAM: ASSESS FOR THROMBOSIS TECHNIQUE: Procedure Code: [id number] Modality: CT Procedure: CTA NECK W/WO CONTRAST Multiplanar Sagittal and Coronal images were obtained. CONTRAST: Isovue 370 VOLUME: 75 mL One or more dose reduction techniques were used (e.g., Automated exposure control, adjustment of the mA and/or kV according to patient size, use of iterative reconstruction technique). RADIATION DOSE SUMMARY: CTDlvol: - mGy DLP: - mGycm COMPARISON: . FINDINGS: AORTIC ARCH: Unremarkable. EXTRACRANIAL CAROTIDS: Patent. SKULL BASE: Unremarkable. INTRACRANIAL VASCULATURE Cerebral Arteries: The middle and anterior cerebral arteries are patent without significant stenosis or aneurysm. [place]: Unremarkable. Venous Drainage: No evident thrombosis. VERTEBROBASILAR SYSTEM: Patent. NONVASCULAR: No acute bony abnormalities. No soft tissue abnormalities. CT/CTA Neck W/WO Contrast IMPRESSION: Unremarkable CTA of the head and neck without significant stenosis or dissectio n. Reading Location: [facility]
--- NOTE | 2025-03-22 09:48 | CT_ITS ---
PROCEDURE: CTA CHEST W/WO CONTRAST 03/22/2025 REASON FOR EXAM: ASSESS FOR PE/THROMBOSIS TECHNIQUE: Procedure Code: CTCTACHWW Modality: CT Procedure: CTA CHEST W/WO CONTRAST Multiplanar Sagittal and Coronal images were obtained. CONTRAST: Isovue 370 VOLUME: 75 mL One or more dose reduction techniques were used (e.g., Automated exposure control, adjustment of the mA and/or kV according to patient size, use of iterative reconstruction technique). RADIATION DOSE SUMMARY: CTDlvol: - mGy DLP: - mGycm COMPARISON: None # of known CTs in the past 12 months: 0 # of known Cardiac Nuclear Medicine Studies in the past 12 months: 0 FINDINGS: Thoracic Aorta: No aneurysm. No dissection. Heart: No cardiomegaly. Pulmonary Vessels: No evidence of pulmonary embolism. Hardware: None. Lymph nodes: No lymphadenopathy. Lungs and Airways: Dependent changes in the posterior lower lobes. Subpleural emphysema in the lung apices. Pleura: No pleural effusion or pneumothorax. Upper Abdomen: Unremarkable. Bones: No acute bony abnormalities. CT/CTA Chest W/WO Contrast IMPRESSION: No evidence of pulmonary embolism. Reading Location: [id number]
--- NOTE | 2025-03-22 09:48 | CT_ITS ---
PROCEDURE: CTA ABD W/RUNOFF W/WO CONTRAST 03/22/2025 REASON FOR EXAM: ASSESS FOR THROMBOSIS TECHNIQUE: Procedure Code: [id number] Modality: CT Procedure: CTA ABD W/RUNOFF W/WO CONTRAST Multiplanar Sagittal and Coronal images were obtained. CONTRAST: Isovue 370 VOLUME: 100 mL One or more dose reduction techniques were used (e.g., Automated exposure control, adjustment of the mA and/or kV according to patient size, use of iterative reconstruction technique). RADIATION DOSE SUMMARY: CTDlvol: 4.32 mGy DLP: 2306.33 mGycm COMPARISON: None. FINDINGS: Aorta: Abdominal aorta is normal in size. No significant atherosclerotic plaque. No evidence of aneurysm or dissection. Iliac Arteries: Patent Celiac: Patent SMA: Patent LUZ : Patent Right Renal: Patent Left Renal: Patent Right lower extremity: Right femoral and popliteal arteries: Patent bilaterally. Right calf arteries: The anterior tibial artery is patent. 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 Left calf arteries: The anterior tibial artery and the posterior tibial artery are patent but small. The peroneal artery is occluded. Additional nonvascular: The liver, spleen, adrenal glands, kidneys, gallbladder,, pancreas are unremarkable. No bowel wall thickening or bowel obstruction. The bladder is unremarkable. No soft tissue abnormality. IVC filter in place. Status post total right hip replacement. No acute bony abnormalities. 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 Otherwise, no significant stenoses in the abdomen, pelvis and above knee lower extremities. Reading Location: [facility]
--- NOTE | 2025-03-22 10:10 | EX.ED.DYSGE1 ---
HPI History of Present Illness Chief Complaint: General Illness Narrative Narrative: Chief complaint and HPI: 54-year-old gentleman with past medical history of DVT, PVD, CVA, PE with history of IVC filter on Coumadin presents for evaluation of right-sided body pain. Patient states that he is between physicians at this time. States that he ran out of his Coumadin approximately 4 days ago. Patient states yesterday evening he developed pain and swelling in his right neck from his ear to his jaw as well as right flank pain down the entire right lower extremity. He states there is a lump just inferior to his right ear that is new. He denies any fever, chills, shortness of breath, chest pain, URI symptoms, hearing changes, dental pain, vision changes, headache, dizziness, nausea, vomiting, diarrhea, constipation, dysuria. Patient does state that he has chronic pain in the right lower extremity in which she is on gabapentin and tramadol although states this is worse. Review of systems: See HPI Medications: As listed on the chart Allergies: As listed on the chart PFSH: Per chart Vital signs: As listed on the chart. Reviewed. Physical exam: Gen: A&O x3, uncomfortable secondary to pain Head: Normocephalic, atraumatic Eyes: No sclera icterus, conjunctiva clear, PERRL, EOMI ENT: EACs and TMs clear BL, patient has a nodule located just inferior to his right ear that is tender to palpation, difficult to assess for erythema given patient is -[place], no mastoid tenderness, parotid nontender or swollen, moist mucous membranes, posterior oropharynx unremarkable, uvula midline, tonsils not enlarged, no Alonzo angina or swelling in the mouth, poor dentition without obvious dental infection or gingival swelling, he has a soft tissue mass that is easily movable and nontender to the right jawline-states this is chronic and a cyst Neck: Trachea midline, no meningismus CV: RRR, no murmurs, no peripheral edema, radial pulses +2 bilaterally Resp: Lungs CTA BL, no w/r/c GI: Abd soft, non-distended, mild tenderness to palpation of the right flank and lower abdomen, no rebound or rigidity : No CVA tenderness Musc: Full ROM, no deformity, patient endorses tenderness to palpation of the entire right lower extremity, no swelling to the right lower extremity, no cellulitis to the right lower extremity but chronic skin changes, compartments soft. DP/PT pulses +1 on the right, +2 on the left. Skin: Warm, dry, no rash Neuro: Alert, oriented, grossly intact, sensation intact Psych: Cooperative [facility] Medical History (Updated 03/22/25 @ 16:[address] Ciaran Mendez, DO) Pulmonary embolism CVA (cerebral vascular accident) Chronic pain History of blood clots Home Medications ?Medication ?Instructions ?Recorded ?Last Taken ?Type ammonium lactate 12 % topical cream 1 applic topical BID #140 grams 12/23/17 Unknown Rx albuterol sulfate 90 mcg/actuation 2 puff inhalation Q4H PRN 01/19/18 Unknown Rx aerosol inhaler (Ventolin HFA) shortness of breath or wheezing #6.7 grams melatonin 5 mg capsule 5 mg PO QDAY PRN insomnia #30 caps 01/19/18 Unknown Rx mometasone 220 mcg/actuation(30 2 inh inhalation BID #1 ea 01/19/18 Unknown Rx doses) breath activated powder inhaler (Asmanex Twisthaler) tramadol 50 mg tablet 50 mg PO Q8H PRN pain #30 tabs 01/19/18 Unknown Rx gabapentin 300 mg capsule 300 mg PO QHS 02/24/19 Unknown History cyclobenzaprine 10 mg tablet 10 mg PO TID PRN Muscle Spasm #20 08/23/19 Unknown Rx tabs warfarin 6 mg tablet 6 mg PO TID 11/22/21 Unknown History warfarin 6 mg tablet 6 mg PO TID 14 days #42 tabs 02/10/24 Unknown Rx warfarin 6 mg tablet 6 mg PO TID 30 days #90 tabs 03/22/25 Unknown Rx Allergy/AdvReac Type Severity Reaction Status Date / Time Penicillins Allergy Swelling Verified 03/22/25 09:32 venom-honey bee (bee venom Allergy Anaphylaxis Verified 03/22/25 09:32 (honey bee)) Surgical History history of left wrist surgery History of right hip replacement Social History Smoking Status: Current some day smoker tobacco type: cigarettes Tobacco: How many years used: 10 how long ago did patient quit smokin alcohol intake: never substance use type: does not use what type of physical activity do you participate in: walking frequency: daily EXAM Physical Exam Const Vital Signs: 03/22/25 09:28 03/22/25 09:35 03/22/25 11:28 Temperature 98.0 F Temperature Source Oral Pulse Rate 63 57 L Respiratory Rate 22 H Respiratory Pattern Tachypnea Blood Pressure 140/93 H Blood Pressure Mean 108 Pulse Ox 100 100 Oxygen Delivery Method Room Air 03/22/25 13:00 03/22/25 16:13 Temperature 98.2 F Temperature Source Pulse Rate 60 64 Respiratory Rate 14 Respiratory Pattern Blood Pressure 140/93 H 120/70 Blood Pressure Mean 108 86 Pulse Ox 100 100 Oxygen Delivery Method Room Air MDM MDM MDM Narrative Medical decision making narrative: 54-year-old gentleman with past medical history of DVT, PVD, CVA, PE with history of IVC filter on Coumadin presents for evaluation of right-sided body pain. Patient states that he is between physicians at this time. States that he ran out of his Coumadin approximately 4 days ago. Patient states yesterday evening he developed right sided pain in his right neck from his ear to his jaw as well as right flank pain down the entire right lower extremity. He states there is a lump just inferior to his right ear that is new. See physical exam findings. Differential diagnosis includes but is not limited to thrombosis, PE, abscess, cyst, lymphadenopathy, chronic pain from PVD. Suspect less likely intra-abdominal pathology such as UTI, appendicitis. Morphine, Zofran, NS bolus ordered. Will obtain basic labs including coagulation panel. Will obtain CTA neck, chest, abdomen with runoff. CBC without leukocytosis or anemia. Platelets unremarkable. INR 0.9. This is subtherapeutic. On chart review, patient is often subtherapeutic. CMP unremarkable. UA negative for UTI. CTA head and neck without significant stenosis or dissection. No thrombosis. CTA chest negative for PE, dissection, thrombosis. CTA abdomen with runoff shows IVC filter. 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 Given these findings, vascular surgery was consulted and I spoke with Dr. Garcia. Suspects this is likely chronic and recommended ABIs to be performed. This was ordered. There is no mention of lymphadenopathy or soft tissue abnormality on the CTA head and neck therefore I personally called the radiologist. He reviewed the imaging again. He states there is a 2.6 x 1.5 cm subcutaneous cyst within wall near the mandible angle without surrounding inflammation or additional evidence of lymphadenopathy, may represent sebaceous cyst. This corresponds with patient's known cyst on exam. He has multiple small reactive lymph nodes including a small lymph node at the tail of the right parotid gland which she thinks may be the source of the patient's tenderness on my exam. No abscess or infection visualized. No clear etiology for patient's lymphadenopathy as he has no URI complaints. He was updated of this and told to monitor for developing symptoms. Will refer him to ENT. ABIs within normal range. Triphasic. Dr. Garcia was reconsulted. Given normal ABIs, no further intervention or medical management is needed. Recommend restarting his warfarin. Patient was updated of the results and confirmed understanding. At this point in time, no clear etiology for his right sided flank/abdominal/lower extremity pain. Pain has improved here with morphine. Patient states he is supposed to be on 6 mg p.o. 3 times daily. Prescription written for warfarin. Will have patient have an INR repeated in 3 days given this is a high dose of warfarin and I do not want him to become supratherapeutic. I did explain this to him. He confirmed understand the plan. He states prior to 4 days ago he was taking this regularly. He is in between physicians at this time. Family member in the room states that they are working on a primary care physician appointment. I did refer him to one in case that primary care physician does not work out. I recommend him following up with vascular surgery and ENT. Return precautions explained. He can take his home tramadol. He confirmed understand the plan. Patient will discharge home. Of note, patient did have an extended stay in our emergency department secondary to me having multiple critical care patients Impression: 1. Right cervical lymphadenopathy, unclear etiology 2. Right flank/abdominal pain, unclear etiology 3. Acute on chronic right lower extremity pain with history of PVD, unclear etiology 4. Subtherapeutic INR on warfarin Lab Data Labs: Laboratory Results - last 24 hr 03/22/25 03/22/25 10:33 10:41 WBC 5.2 RBC 4.48 L Hgb 13.2 Hct 40.7 MCV 90.8 MCH 29.5 MCHC 32.4 RDW Std Deviation 46.5 H RDW Coeff of Jordyn 13.8 Plt Count 194 MPV 10.5 Immature Gran % (Auto) 0.200 Neut % (Auto) 44.2 L Lymph % (Auto) 44.7 H [place] % (Auto) 8.8 Eos % (Auto) 1.7 Baso % (Auto) 0.4 Absolute Neuts (auto) 2.3 Absolute Lymphs (auto) 2.34 Nucleated RBC % 0 PT 12.4 INR 0.9 APTT 24.0 L Sodium 139 Potassium 4.1 Chloride 103 Carbon Dioxide 24.3 Anion Gap 12 BUN 10 Creatinine 0.83 Estim Creat Clear Calc 108.36 Est GFR (MDRD) Non-Af 104 BUN/Creatinine Ratio 11.7 Glucose 97 Calcium 9.5 Total Bilirubin 0.24 AST 18 ALT 16 Alkaline Phosphatase 70 Total Protein 7.1 Albumin 4.1 Globulin 3.1 Albumin/Globulin Ratio 1.3 Urine Color Yellow Urine Clarity Clear Urine pH 7.0 Ur Specific [place] 1.010 Urine Protein Negative Urine Glucose (UA) Normal Urine Ketones Negative Urine Occult Blood Negative Urine Nitrite Negative Urine Bilirubin Negative Urine Urobilinogen Normal Ur Leukocyte Esterase Negative Urine RBC 0 SEEN Urine WBC 0 SEEN Ur Squamous Epith Cells 0-5 SEEN Urine Bacteria 0 SEEN Urine Mucus 0 SEEN Radiography Diagnostic Testing: Clinical Impression(s) from Imaging Studies Abdomen/Pelvis CTA 03/22/25 09:48 IMPRESSION: 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 Otherwise, no significant stenoses in the abdomen, pelvis and above knee lower extremities. Reading Location: [id number] Chest CTA 03/22/25 09:48 IMPRESSION: No evidence of pulmonary embolism. Reading Location: [id number] Neck CTA 03/22/25 09:48 IMPRESSION: Unremarkable CTA of the head and neck without significant stenosis or dissection. Reading Location: [id number] Discharge Plan Triage Chief Complaint: General Illness ED Provider: Ciaran Mendez Dx/Rx/DC Orders Clinical Impression: Leg pain, right, Lymphadenopathy, Subtherapeutic international normalized ratio (INR) Instructions: Medicine for Pain, Lymphadenopathy Prescriptions: New warfarin 6 mg tablet 6 mg PO TID 30 Days Qty: 90 0RF No Action ammonium lactate 12 % cream 1 applic TOPICAL BID Qty: 140 2RF Rx Instructions: TO HIP AND LEG tramadol 50 mg tablet 50 mg PO Q8H PRN (Reason: pain) Qty: 30 0RF melatonin 5 mg capsule 5 mg PO QDAY PRN (Reason: insomnia) Qty: 30 1RF albuterol sulfate [Ventolin HFA] 90 mcg/actuation HFA aerosol inhaler 2 puff INHALATION Q4H PRN (Reason: shortness of breath or wheezing) Qty: 6.7 2RF mometasone [Asmanex Twisthaler] 220 mcg (30 doses) aerosol powdr breath activated 2 inh INHALATION BID Qty: 1 1RF gabapentin 300 MG capsule 300 mg PO QHS cyclobenzaprine 10 MG tablet 10 mg PO TID PRN (Reason: Muscle Spasm) Qty: 20 0RF warfarin [Coumadin] 6 mg Tablet 6 mg PO TID warfarin 6 mg tablet 6 mg PO TID 14 Days Qty: 42 0RF Other Ambulatory Orders: Prothrombin Time w/INR (Routine) Timeframe: 3 Days Facility: [facility] - Location: Laboratory [facility] Provider: Care Physician,No Primary Referrals: Mukesh Garcia MD [Med Staff - Active Staff, Vascular Surgery] - 3-5 Days Loki Henry MD [Med Staff - Active Staff, Ear Nose Throat (ENT)] - 3-5 Days Ervin Tomlinson MD [Med Staff - Active Staff, Family Practice] - 3-5 Days Activity Restrictions/Additional Instructions: Follow-up with primary care physician. If you do not have a primary care physician follow-up with the one provided above. Call to make an appointment. You were given a new prescription for your warfarin. You need to have your INR rechecked. Prescription provided. Follow-up with vascular surgery. You have some swollen lymph nodes in your neck. Monitor for worsening signs and symptoms such as cough, sinus congestion, sore throat. Follow-up with ENT. Continue your home tramadol. Return back to the ED if symptoms change or worsen. Print Language: Greek Disposition Disposition: Home, Self Care Discharge Date/Time: 03/22/25 16:14
[2025-03-22 10:42] LABS: Hematocrit 40.7 % (40-54); Hemoglobin 13.2 g/dL (13.0-16.5); Immature Granulocytes Count 0.010 X10^3/uL (0.0-0.0); Mean Corp Hgb Conc 32.4 g/dL (32-36); Mean Corpuscular Volume 90.8 fL (80-94); Mean Platelet Vol. 10.5 fl (6.2-12.0); NRBC Flagged by Analyzer 0 % (0-5); Platelet Count 194 K/mm3 (150-450); RBC Distribution Width CV 13.8 % (11.6-14.6); RBC Distribution Width SD 46.5 fl (35.1-43.9); Red Blood Count 4.48 M/mm3 (4.6-6.2); White Blood Count 5.2 K/mm3 (4.4-11.0)
[2025-03-22] MEDS: 0.9% Normal Saline (1000mL) 1,000 ML 1000 ML IV (10:44)
[2025-03-22 10:49] LABS: Mucous, Urine 0 SEEN /hpf (<or=2+); Red Blood Cells-Urine 0 SEEN /hpf (0-5)
[2025-03-22 10:51] LABS: Prothrombin Time (Protime)PT. 12.4 SECONDS (11.7-14.9)
[2025-03-22 10:52] LABS: Partial Thromboplast Time 24.0 Seconds (24.1-36.2)
[2025-03-22 11:28] VITALS: BP 140/93; PULSE 57; O2SAT 100
[2025-03-22 11:28] LABS: Color, Urine Yellow (Yellow); Glucose, Dipstick Normal (Normal); Ketone-Dipstick Negative (Negative); Leukocyte Esterase-Dipstick Negative /ul (Negative); Nitrite-Dipstick Negative (Negative); Occult Blood-Urine Negative /ul (Negative); Protein-Dipstick Negative (Negative); Specific Gravity, Urine 1.010 (1.002-1.030); Urine Bilirubin Dipstick Negative (Negative)
--- NOTE | 2025-03-22 11:30 | CM.ED ---
Social work Reason for referral: no PCP Referral source: case find SW identified patient's lack of PCP and need for resources. SW entered patient's room, introducing self and role at [facility]. Patient confirmed lacking a PCP and was grateful for resources of [facility] Provider Directory and [facility] [place] information. Patient denied further needs at this time. Mira Castro, LAY[employer], [employer]
[2025-03-22 11:40] LABS: AST(SGOT) 18 U/L (<=37); Alanine Aminotransfer ALT/SGPT 16 U/L (<=46); Albumin, Serum 4.1 g/dL (3.5-5.0); Alkaline Phosphatase 70 U/L (40-129); Anion Gap 12 (5-15); BUN 10 mg/dL (4-19); BUN/Creat Ratio 11.7 RATIO (10-20); Calcium,Total 9.5 mg/dL (7.6-11.0); Carbon Dioxide 24.3 mmol/L (21.0-32.0); Chloride 103 mmol/L (98-108); Estimated Creatinine Clearance 108.36 ml/min (50-250); Globulin 3.1 g/dL (2.2-4.2); Glucose 97 mg/dL (70-99); Potassium 4.1 mmol/L (3.3-5.1)
[2025-03-22 11:54] LABS: Squamous Epithelial Cells - UA 0-5 SEEN /hpf (0-5)
--- NOTE | 2025-03-22 12:56 | ART_ITS ---
Reason For Study Reason For Study: Occlusion on CTA Procedure A bilateral lower extremity continuous wave Doppler with analog waveform analysis and ankle brachial indexes. Left Segmental Pressures Left posterior tibial artery = 172mmHg. Left dorsalis pedis artery = 182mmHg. Left digit = 164 mmHg. The left dorsalis pedis waveforms are triphasic. The left posterior tibial artery waveforms are triphasic. Right Segmental Pressures Right brachial= 140mmHg. Right posterior tibial artery = 173mmHg. Right dorsalis pedis artery = 178mmHg. Right digit = 126 mmHg. The right dorsalis pedis waveforms are triphasic. The right posterior tibial artery waveforms are triphasic. Indices The right ankle brachial index by the dorsalis pedis is 1.27. The right ankle brachial index by the posterior tibial artery is 1.24. The right digital-brachial index is 0.90. The left ankle brachial index by the dorsalis pedis is 1.30. The left ankle brachial index by the posterior tibial artery is 1.23. The left digital-brachial index is 1.17. VL/Ankle Brachial Index Interpretation Summary Right ERICA 1.27, normal. TBI and Doppler/PVR waveforms of the right ankle normal at rest. Left ERICA 1.3, normal. TBI and Doppler/PVR waveforms of the left ankle normal at rest. Ordering Physician: Ciaran Mendez Performed By: Cori Sanon RVT
[2025-03-22 13:00] VITALS: BP 140/93; PULSE 60; O2SAT 100
[2025-03-22 16:13] VITALS: BP 120/70; PULSE 64; RESP 14; TEMP 36.8; O2SAT 100
== END 2025-03-22 16:14 | disposition home or self-care (01) ==
PROVIDERS: Emergency Provider Surgery; Visit Provider Surgery
DX: R59.0 Localized enlarged lymph nodes (principal); R10.9 Unspecified abdominal pain; R79.1 Abnormal coagulation profile; I73.9 Peripheral vascular disease, unspecified; G89.29 Other chronic pain; F17.210 Nicotine dependence, cigarettes, uncomplicated; Z79.01 Long term (current) use of anticoagulants; Z86.711 Personal history of pulmonary embolism; Z86.718 Personal history of other venous thrombosis and embolism; Z86.73 Personal history of transient ischemic attack (TIA), and cerebral infarction without residual deficits
CPT/HCPCS: 70498; 71275; 75635; 80053; 81001; 85025; 85610; 85730; 93922; 96361; 96374; 96375; 99285; Q9967; A4216; J2405

== ENCOUNTER → 2025-03-25 | Outpatient (CLI) | payer MEDICAID, SELFPAY ==
[2025-03-25 11:13] LABS: Prothrombin Time (Protime)PT. 18.8 SECONDS (11.7-14.9)
== END | disposition home or self-care (01) ==
PROVIDERS: Referring Provider Surgery; Visit Provider Surgery
DX: R79.1 Abnormal coagulation profile (principal)
CPT/HCPCS: 36415; 85610